=== PATIENT | male | born 1950 | race Caucasian/White ===

== ENCOUNTER 2021-10-23 | Emergency (ER) | payer MEDICARE, SELFPAY ==
--- NOTE | 2021-10-23 | ECG_ITS ---
Test Reason : HYPOGYLCEMIA Blood Pressure : / mmHG Vent. Rate : 063 BPM Atrial Rate : 063 BPM P-R Int : 208 ms QRS Dur : 102 ms QT Int : 422 ms P-R-T Axes : 074 056 078 degrees QTc Int : 431 ms Normal sinus rhythm Normal ECG When compared with ECG of 14-SEP-2018 20:11, Premature ventricular complexes are no longer Present Referred By: Generic ED Physician Electronically Signed By:Kirby Candelaria
[2021-10-23 00:06] VITALS: BP 126/53; BP 130/70; PULSE 68; RESP 16; TEMP 36.5; O2SAT 93; BMI 32.4
[2021-10-23 00:12] LABS: Glucose, Whole Blood 75 mg/dL (60-115)
[2021-10-23 00:22] LABS: MANUAL DIFF FLAG NO
[2021-10-23 00:23] LABS: Basophils Absolute Auto 0.1 X10*3/uL (0.0-0.2); Basophils Percent Auto 0.8 % (0-2); Eosinophils Absolute Auto 0.4 X10*3/uL (0.0-0.4); Hematocrit 32.9 % (42.0-52.0); Hemoglobin 10.5 g/dl (14.0-18.0); Imm Gran Abs Auto 0.03 X10*3/uL (0.00-0.03); Imm Gran Pct Auto 0.3 % (0.0-0.4); Lymphocytes Absolute Auto 1.8 X10*3/uL (1.2-4.9); Lymphocytes Percent Auto 18.5 % (20-40); Mean Corpuscular HGB Conc 31.9 g/dl (31.0-36.0); Mean Corpuscular Hemoglobin 29.1 pg (27.0-33.0); Mean Corpuscular Volume 91.1 fL (80.0-98.0); Mean Platelet Volume 9.1 fL (9.4-12.4); Monocytes Absolute Auto 0.8 X10*3/uL (0.1-1.2); Monocytes Percent Auto 8.1 % (2-11); Neutrophils Absolute Auto 6.5 x10*3/uL (2.0-8.3); Neutrophils Percent Auto 68.3 % (45-73); Platelet Count 202 X10*3/uL (160-400); Red Blood Count 3.61 X10*6/uL (4.60-5.80); Red Cell Distribution Width 12.4 % (11.0-16.0); White Blood Count 9.5 X10*3/uL (4.8-10.8)
[2021-10-23 00:50] LABS: Troponin-I High Sensitivity 9.2 ng/L (<3.5-35.0)
[2021-10-23 00:52] LABS: Glucose, Whole Blood 89 mg/dL (60-115)
[2021-10-23 01:02] LABS: Alanine Aminotransferase 17 U/L (0-40); Albumin Level 3.9 g/dL (3.5-5.0); Alkaline Phosphatase 74 U/L (39-117); Anion Gap 13 (12-20); Aspartate Amino Transferase 22 U/L (5-37); Bilirubin Total 0.3 mg/dL (0.0-1.0); Blood Urea Nitrogen 28 mg/dL (9-16); Carbon Dioxide 28 mmol/L (22-29); Chloride 104 mmol/L (96-108); Creatinine Clr Calc Pharmacy 51.9; Estimated Glomerular Filt Rate 48; Glucose Random 28 mg/dL (60-115); Potassium 4.3 mmol/L (3.3-5.1); Sodium 141 mmol/L (135-145); Total Protein 7.1 g/dL (6.5-8.0)
[2021-10-23 01:14] LABS: Glucose, Whole Blood 250 mg/dL (60-115)
[2021-10-23 01:14] LABS: Glucose, Whole Blood 37 mg/dL (60-115)
--- NOTE | 2021-10-23 01:37 | ED.AMS ---
HPI - Altered Mental Status General Chief Complaint: Altered Mental Status Stated Complaint: HYPERGLYCEMIA Time Seen by Provider: 10/23/21 00:57 Source: EMS Mode of arrival: EMS Limitations: no limitations History of Present Illness HPI narrative: Patient was seen in the room for altered mental status. At home, patient was sitting on his couch, seems that he was running in his arms, not in a tonic clonic manner. Patient's checked his blood glucose, it was read as low. When EMS arrived, he was given oral glucose, his blood glucose increased to 430. On arrival to the emergency room, it had already dropped to 75. Shortly after, his blood glucose was checked again, glucose dropped to the low 30s. Patient is very somnolent, cannot give any significant history. Related Data Previous Rx's Medication Instructions Recorded glucagon 1 mg solution for 1 mg IM ONCE PRN #1 ea 10/23/21 injection (Glucagon Emergency Kit) Allergies Allergy/AdvReac Type Severity Reaction Status Date / Time No Known Allergies Allergy Verified 10/23/21 00:10 Review of Systems Review of Systems: Yes Unobtainable due to mental condition [facility] Past Medical History Medical History Diabetes Social History Social History Advance Directives: No Advance Directives Information Provided: No Physical Exam ED Vital Signs: Vital Signs - 24 hr 10/23/21 00:06 10/23/21 01:38 Temperature 97.7 F Pulse Rate 68 72 Respiratory Rate 16 16 Blood Pressure 126/53 L 164/88 H Pulse Oximetry 93 98 BMI result Body Mass Index 32.4 Const Other: Appearance: Somnolent, easily arousable but falls right back asleep Eyes: Pupils equal, round and reactive to light. ENT: Pharynx normal. Neck: Normal inspection. Neck supple. No lymph nodes noted. No crepitus CVS: Normal heart rate and rhythm. Pulses normal. Normal S1 and S2 Respiratory: No respiratory distress. Breath sounds normal. No Wheezing. No rales Abdomen: Soft and nontender. No rigidity. No distention. Skin: Skin warm and dry. Patient has a 4 cm laceration in the calf of the left leg Extremities: No lower extremity edema. No Lacerations. No Rash Neuro: Very somnolent, can follow some basic commands, pulse rate asleep Psych: calm, somnolent Course Course Course Narrative: Patient was given 1 dose of D50, blood glucose is in the 130s. Patient more awake and alert. Patient tolerated well the stitches, 7 were applied. Patient has had multiple blood sugar checks, patient has been consistently in the 150s. Asymptomatic. Patient instructed to decrease his Lantus to 35 units at bedtime. Patient given a prescription for a glucagon emergency kit MDM - Altered Mental Status Lab Data Result diagrams: 10/23/21 00:18 10/23/21 00:18 Labs: Lab Results 10/23/21 10/23/21 10/23/21 Range/Units 00:07 00:18 00:18 WBC 9.5 (4.8-10.8) X10*3/uL RBC 3.61 L (4.60-5.80) X10*6/uL Hgb 10.5 L (14.0-18.0) g/dl Hct 32.9 L (42.0-52.0) % MCV 91.1 (80.0-98.0) fL MCH 29.1 (27.0-33.0) pg MCHC 31.9 (31.0-36.0) g/dl RDW 12.4 (11.0-16.0) % Plt Count 202 (160-400) X10*3/uL MPV 9.1 L (9.4-12.4) fL Immature Gran % (Auto) 0.3 (0.0-0.4) % Neut % (Auto) 68.3 (45-73) % Lymph % (Auto) 18.5 L (20-40) % [place] % (Auto) 8.1 (2-11) % Eos % (Auto) 4.0 (0-4) % Baso % (Auto) 0.8 (0-2) % Lymph # (Auto) 1.8 (1.2-4.9) X10*3/uL [place] # (Auto) 0.8 (0.1-1.2) X10*3/uL Eos # (Auto) 0.4 (0.0-0.4) X10*3/uL Baso # (Auto) 0.1 (0.0-0.2) X10*3/uL Abs Immat Gran (auto) 0.03 (0.00-0.03) X10*3/uL Absolute Neuts (auto) 6.5 (2.0-8.3) x10*3/uL Absolute Nucleated RBC 0.000 (0.0-0.012) X10*3/uL Nucleated RBC % (auto) 0.0 (0.0-0.2) /100WBC Sodium 141 (135-145) mmol/L Potassium 4.3 (3.3-5.1) mmol/L Chloride 104 (96-108) mmol/L Carbon Dioxide 28 (22-29) mmol/L Anion Gap 13 (12-20) BUN 28 H (9-16) mg/dL Creatinine 1.45 H (0.5-1.4) mg/dL Estim Creat Clear Calc 51.9 Estimated GFR 48 POC Glucose 75 (60-115) mg/dL Random Glucose 28 L* (60-115) mg/dL Calcium 9.0 (8.4-10.2) mg/dL Total Bilirubin 0.3 (0.0-1.0) mg/dL AST 22 (5-37) U/L ALT 17 (0-40) U/L Alkaline Phosphatase 74 (39-117) U/L Troponin I High Sens (<3.5-35.0) ng/L Total Protein 7.1 (6.5-8.0) g/dL Albumin 3.9 (3.5-5.0) g/dL 10/23/21 10/23/21 10/23/21 Range/Units 00:18 00:46 01:03 WBC (4.8-10.8) X10*3/uL RBC (4.60-5.80) X10*6/uL Hgb (14.0-18.0) g/dl Hct (42.0-52.0) % MCV (80.0-98.0) fL MCH (27.0-33.0) pg MCHC (31.0-36.0) g/dl RDW (11.0-16.0) % Plt Count (160-400) X10*3/uL MPV (9.4-12.4) fL Immature Gran % (Auto) (0.0-0.4) % Neut % (Auto) (45-73) % Lymph % (Auto) (20-40) % [place] % (Auto) (2-11) % Eos % (Auto) (0-4) % Baso % (Auto) (0-2) % Lymph # (Auto) (1.2-4.9) X10*3/uL [place] # (Auto) (0.1-1.2) X10*3/uL Eos # (Auto) (0.0-0.4) X10*3/uL Baso # (Auto) (0.0-0.2) X10*3/uL Abs Immat Gran (auto) (0.00-0.03) X10*3/uL Absolute Neuts (auto) (2.0-8.3) x10*3/uL Absolute Nucleated RBC (0.0-0.012) X10*3/uL Nucleated RBC % (auto) (0.0-0.2) /100WBC Sodium (135-145) mmol/L Potassium (3.3-5.1) mmol/L Chloride (96-108) mmol/L Carbon Dioxide (22-29) mmol/L Anion Gap (12-20) BUN (9-16) mg/dL Creatinine (0.5-1.4) mg/dL Estim Creat Clear Calc Estimated GFR POC Glucose 89 37 L* (60-115) mg/dL Random Glucose (60-115) mg/dL Calcium (8.4-10.2) mg/dL Total Bilirubin (0.0-1.0) mg/dL AST (5-37) U/L ALT (0-40) U/L Alkaline Phosphatase (39-117) U/L Troponin I High Sens 9.2 (<3.5-35.0) ng/L Total Protein (6.5-8.0) g/dL Albumin (3.5-5.0) g/dL 10/23/21 10/23/21 10/23/21 Range/Units 01:11 01:25 01:37 WBC (4.8-10.8) X10*3/uL RBC (4.60-5.80) X10*6/uL Hgb (14.0-18.0) g/dl Hct (42.0-52.0) % MCV (80.0-98.0) fL MCH (27.0-33.0) pg MCHC (31.0-36.0) g/dl RDW (11.0-16.0) % Plt Count (160-400) X10*3/uL MPV (9.4-12.4) fL Immature Gran % (Auto) (0.0-0.4) % Neut % (Auto) (45-73) % Lymph % (Auto) (20-40) % [place] % (Auto) (2-11) % Eos % (Auto) (0-4) % Baso % (Auto) (0-2) % Lymph # (Auto) (1.2-4.9) X10*3/uL [place] # (Auto) (0.1-1.2) X10*3/uL Eos # (Auto) (0.0-0.4) X10*3/uL Baso # (Auto) (0.0-0.2) X10*3/uL Abs Immat Gran (auto) (0.00-0.03) X10*3/uL Absolute Neuts (auto) (2.0-8.3) x10*3/uL Absolute Nucleated RBC (0.0-0.012) X10*3/uL Nucleated RBC % (auto) (0.0-0.2) /100WBC Sodium (135-145) mmol/L Potassium (3.3-5.1) mmol/L Chloride (96-108) mmol/L Carbon Dioxide (22-29) mmol/L Anion Gap (12-20) BUN (9-16) mg/dL Creatinine (0.5-1.4) mg/dL Estim Creat Clear Calc Estimated GFR POC Glucose 250 H 159 H 154 H (60-115) mg/dL Random Glucose (60-115) mg/dL Calcium (8.4-10.2) mg/dL Total Bilirubin (0.0-1.0) mg/dL AST (5-37) U/L ALT (0-40) U/L Alkaline Phosphatase (39-117) U/L Troponin I High Sens (<3.5-35.0) ng/L Total Protein (6.5-8.0) g/dL Albumin (3.5-5.0) g/dL Procedures Laceration Laceration 1: Site: lower extremity Side (If applicable): left Size (cm): 4 Description: linear, flap and irregular Depth: simple, single layer Local Anesthetic: lidocaine 1% and with epi Amount of anesthesia used (mL): 10 Pre-repair: wound explored Skin layer closed with: nylon Size (cm): 4-0 Number of sutures: 7 Technique: simple, interrupted Discharge Plan Discharge Clinical Impression: Hypoglycemia, Laceration of skin of left lower leg Patient Disposition: Home, Self-Care Instructions: Laceration (ED), Hypoglycemia in a Person with Diabetes (ED) Additional Instructions: Please decrease your Lantus units to 35 units until you see your primary care physician. Your sutures need to be removed in 7-10 days. If you have any signs of infection such as redness, pus drainage, fever or chills, please return to the emergency room. Please follow-up with your primary care physician tomorrow. If you have any worsening or new symptoms, please return to the emergency room or call 911 Prescriptions: New Glucagon Emergency Kit (human) 1 mg recon soln 1 mg IM ONCE PRN (Reason: hypoglycemia) Qty: 1 0RF
[2021-10-23 01:38] VITALS: BP 164/88; PULSE 72; RESP 16; O2SAT 98
[2021-10-23 01:42] LABS: Glucose, Whole Blood 154 mg/dL (60-115)
[2021-10-23 01:42] LABS: Glucose, Whole Blood 159 mg/dL (60-115)
[2021-10-23] MEDS: Dextrose 5 % and 0.45 % NaCl 1,000 ML 125 ML IVCONT (02:46)
[2021-10-23 04:00] VITALS: BP 164/88; PULSE 72; RESP 16; TEMP 36.5
[2021-10-23 09:34] LABS: Glucose, Whole Blood 99 mg/dL (60-115)
[2021-10-23 09:34] LABS: Glucose, Whole Blood 108 mg/dL (60-115)
== END 2021-10-23 06:05 | disposition home or self-care (01) ==
PROVIDERS: Emergency Provider Emergency Medicine; PCP Internal Medicine
DX: E11.649 Type 2 diabetes mellitus with hypoglycemia without coma (principal); S81.812A Laceration without foreign body, left lower leg, initial encounter; W45.8XXA Other foreign body or object entering through skin, initial encounter; R40.0 Somnolence; Y93.9 Activity, unspecified; Y92.9 Unspecified place or not applicable; Y99.9 Unspecified external cause status
CPT/HCPCS: 36415; 80053; 82947; 84484; 85025; 93005; 96374; 99284

== ENCOUNTER 2021-12-06 06:26 | Observation (INO) | payer MEDICARE, SELFPAY ==
[2021-12-06] VITALS (8 sets, daily range): BP systolic 120–170; BP diastolic 53–80; PULSE 75–83; RESP 12–22; TEMP 36.8–37.2; O2SAT 90–97; BMI 29.8
--- NOTE | ~2021-12-06 | XR_ITS ---
EXAMINATION: XR CHEST XR KNEE-RIGHT CLINICAL INFORMATION: Syncope. History of fall, right knee pain. COMPARISON: Chest radiograph done on 09/14/2018. TECHNIQUE: Single frontal view of the chest and 2 views of the right knee were obtained. FINDINGS: Chest: Both lung nunez are symmetrically expanded and appear clear. The cardiac mediastinal silhouette is within normal limit. Prominent epicardial pad of fat is noted. No evidence of any pleural effusion or pneumothorax. The visualized upper abdomen is unremarkable. The heart size is within normal limits. No significant change. Right knee: Mild diffuse osteopenia. Bony alignments are intact. The cortices are intact. No evidence of any joint effusion present. Extensive atherosclerotic femoral popliteal arterial calcific disease is present. Soft tissues are otherwise unremarkable. XR/XR knee RT 2V IMPRESSION: 1. No radiographic evidence of acute cardiopulmonary disease. 2. No radiographic evidence of any displaced fracture, subluxation or dislocation or joint effusion is seen. 3. Incidental note is made of extensive calcific atherosclerotic disease of the femoral popliteal arteries.
--- NOTE | ~2021-12-06 | XR_ITS ---
EXAMINATION: XR CHEST XR KNEE-RIGHT CLINICAL INFORMATION: Syncope. History of fall, right knee pain. COMPARISON: Chest radiograph done on 09/14/2018. TECHNIQUE: Single frontal view of the chest and 2 views of the right knee were obtained. FINDINGS: Chest: Both lung nunez are symmetrically expanded and appear clear. The cardiac mediastinal silhouette is within normal limit. Prominent epicardial pad of fat is noted. No evidence of any pleural effusion or pneumothorax. The visualized upper abdomen is unremarkable. The heart size is within normal limits. No significant change. Right knee: Mild diffuse osteopenia. Bony alignments are intact. The cortices are intact. No evidence of any joint effusion present. Extensive atherosclerotic femoral popliteal arterial calcific disease is present. Soft tissues are otherwise unremarkable. XR/XR chest 1V IMPRESSION: 1. No radiographic evidence of acute cardiopulmonary disease. 2. No radiographic evidence of any displaced fracture, subluxation or dislocation or joint effusion is seen. 3. Incidental note is made of extensive calcific atherosclerotic disease of the femoral popliteal arteries.
--- NOTE | ~2021-12-06 | CT_ITS ---
EXAMINATION: CT HEAD WITHOUT CONTRAST CLINICAL INFORMATION: Status post fall. Right knee pain. COMPARISON: CT of the head done on 09/14/2018. TECHNIQUE: Contiguous axial imaging was performed from the skull base to vertex without intravenous administration of contrast. This CT examination was performed using dose optimization techniques as appropriate, variously including the following: *Automated exposure control *Adjustment of mA and/or kV according to patient size (this includes techniques or standardized protocols for targeted exams where dose is matched to indication/reason for exam; i.e. extremities or head) *Use of iterative reconstruction technique DLP: 827.8 mGy-cm FINDINGS: There is no evidence of acute intracranial hemorrhage or territorial infarction. No abnormal mass effect or midline shift is seen. Leyva to white matter differentiation is well preserved. No extra-axial fluid collections are identified. The ventricles are normal in size. There is no abnormal attenuation within the brain parenchyma. The osseous structures and soft tissues are normal. The mastoid air cells and visualized portions of the paranasal sinuses are well aerated. CT/CT head/brain wo con IMPRESSION: No acute intracranial pathology. No significant change since prior study dated 09/14/2018.
[2021-12-06 06:42] LABS: Glucose, Whole Blood 110 mg/dL (60-115)
--- NOTE | 2021-12-06 07:40 | ECG_ITS ---
Test Reason : syncope Blood Pressure : / mmHG Vent. Rate : 074 BPM Atrial Rate : 074 BPM P-R Int : 208 ms QRS Dur : 102 ms QT Int : 382 ms P-R-T Axes : 071 054 073 degrees QTc Int : 424 ms Normal sinus rhythm Normal ECG When compared with ECG of 23-OCT-2021 00:21, No significant change was found Referred By: Selvin Olivier Electronically Signed By:CATY DUKE MD
--- NOTE | 2021-12-06 07:46 | ED_ITS ---
HPI - General Adult General Chief complaint: Fall Stated complaint: Hypoglycemia Time Seen by Provider: 12/06/21 07:40 Source: patient, family (Spouse) and EMS Mode of arrival: EMS Limitations: no limitations History of Present Illness HPI narrative: 71-year-old male came in for evaluation of syncope. This is a 71-year-old male type 1 diabetes controlled with Lantus insulin 40 units daily at the p.m. time, patient had syncopal episode was sleeping on the recliner down stairs then found on the floor with LOC, patient has no memory of the event, EMS found him on the floor with LOC, POC was checked by EMS and was 38 patient started to regain consciousness gradually after 25 G of D50 was administrated by EMS. Patient had another episode of syncope yesterday but patient refused to come to the hospital for evaluation. Patient's only complaint is right knee pain, no headache, no head pain, no neck pain, no fever, no chills. Patient takes Plavix and aspirin Related Data Home Medications Medication Instructions Recorded Confirmed albuterol sulfate 90 mcg/actuation 2 puff INHALATION Q6H PRN 12/06/21 12/06/21 aerosol inhaler amitriptyline 25 mg tablet 3 tab PO DAILY 12/06/21 12/06/21 amlodipine 10 mg tablet 1 tab PO DAILY 12/06/21 12/06/21 aspirin 81 mg tablet,delayed 1 tab PO DAILY 12/06/21 12/06/21 release clopidogrel 75 mg tablet 1 tab PO DAILY 12/06/21 12/06/21 fluticasone fur. 100 mcg-umeclid 1 puff PO DAILY 12/06/21 12/06/21 62.5 mcg-vilant 25 mcg inhalat.powder (Trelegy Ellipta) gabapentin 300 mg capsule cap PO 12/06/21 lisinopril 2.5 mg tablet 1 tab PO DAILY 12/06/21 12/06/21 oxycodone 20 mg tablet,crush 1 tab PO BID PRN 12/06/21 12/06/21 resistant,extended release 12 hr (OxyContin) oxycodone-acetaminophen 5 mg-325 1 tab PO Q12H PRN 12/06/21 12/06/21 mg tablet pravastatin 40 mg tablet 1 tab PO DAILY 12/06/21 12/06/21 tiotropium 2.5 mcg-olodaterol 2.5 2 puff INHALATION DAILY 12/06/21 12/06/21 mcg/actuation mist for inhalation (Stiolto Respimat) Previous Rx's Medication Instructions Recorded glucagon 1 mg solution for 1 mg IM ONCE PRN #1 ea 10/23/21 injection (Glucagon Emergency Kit) Allergies Allergy/AdvReac Type Severity Reaction Status Date / Time No Known Allergies Allergy Verified 12/06/21 06:41 Review of Systems Review of Systems: All other systems are reviewed and are negative Constitutional: Reports as per HPI and Reports no additional constitutional complaints Eyes: Reports as per HPI and Reports no additional eye complaints Reports system reviewed and no additional complaints, except as documented Cardiovascular: Reports as per HPI and Reports no additional cardiovascular co mplaints Respiratory: Reports as per HPI and Reports no additional respiratory complaints Gastrointestinal: Reports as per HPI and Reports no additional gastrointestinal complaints Genitourinary: Reports no additional female genitourinary complaints Musculoskeletal: Reports no additional musculoskeletal complaints Skin/Breast: Reports system reviewed and no additional complaints, except as docu Psychiatric: Reports no additional psychiatric complaints Endocrine: Reports no additional endocrine complaints Hematologic/Lymphatic: Reports no additional hematologic/lymphatic complaints Allergic/Immunologic: Reports no additional allergic/immunologic complaints Reports system reviewed and no additional complaints, except as documented and Reports Abnormal speech present [facility] Past Medical History Medical History Diabetes Social History Social History Alcohol intake: never Patient Tobacco Use Status: Current someday Tobacco user Use of substances other than those prescribed or required for medical reasons: No Advance Directives: No Advance Directives Information Provided: No Physical Exam ED Vital Signs: Vital Signs - 24 hr 12/06/21 06:33 12/06/21 06:44 12/06/21 11:20 Temperature 98.5 F Pulse Rate 76 75 77 Respiratory Rate 22 H 18 12 Blood Pressure 129/53 L 134/53 L 149/66 H Pulse Oximetry 90 L 94 94 BMI result Body Mass Index 29.8 Vital signs have been reviewed as appeared to be correct. Blood pressure normal. Heart rate normal. Respiration rate normal. Temperature normal. Oxygen saturation normal. Appearance: Alert. Oriented X3. No acute distress. Head: Normal external exam. Normocephalic. Atraumatic. No Alex signs noted. No raccoon eyes noted Eyes: PERRLA. EOMI. Conjunctiva and sclera normal. Eyelids normal. ENT: TM's Normal. Pharynx normal. Uvula midline. Moist mucous membranes. No trismus noted. No drooling noted. No muffled voice noted. Neck: Normal inspection. Neck supple. FROM. No adenopathy. Thyroid Normal. No meningeal signs. No neck mass noted. CVS: Normal heart rate and rhythm. Heart sound normal. No murmurs noted. Pulses normal throughout. Respiratory: No respiratory distress. Painless inspiration. Breath sounds normal. No wheezes/rales/rhonchi noted. Chest nontender. No accessory muscle usage noted or decreased air movement noted. Abdomen: Soft and nontender. Bowel sounds normal in all 4 quadrants. No distention noted. No organomegaly noted. No visible injury noted. Back: No CVA tenderness. Full range of motion noted. Skin: Skin warm and dry. Normal skin color. Normal skin turgor. No rashes/lesions/lacerations noted. Extremities: No lower extremity edema. Extremities exhibit normal range of motion. Extremities nontender. Neuro: Oriented X 3. Cranial nerve exam: II-XII are grossly intact No motor deficit. No sensory deficit. Reflexes normal. Course Course Course Narrative: Assessment and plan. 71-year-old male history diabetes controlled with insulin, patient take Lantus 40 units once a day, had a 3 isolated episodes of hypoglycemia with syncope, will admit the patient for further blood sugar monitoring. Medical Decision Making Lab Data Lab results reviewed: Yes I reviewed the patient's lab results. Result diagrams: 12/06/21 08:17 12/06/21 08:17 Labs: Lab Results 12/06/21 12/06/21 12/06/21 Range/Units 06:34 08:17 08:17 WBC 12.5 H (4.8-10.8) X10*3/uL RBC 3.67 L (4.60-5.80) X10*6/uL Hgb 10.7 L (14.0-18.0) g/dl Hct 33.8 L (42.0-52.0) % MCV 92.1 (80.0-98.0) fL MCH 29.2 (27.0-33.0) pg MCHC 31.7 (31.0-36.0) g/dl RDW 12.8 (11.0-16.0) % Plt Count 225 (160-400) X10*3/uL MPV 9.3 L (9.4-12.4) fL Immature Gran % (Auto) 0.6 H (0.0-0.4) % Neut % (Auto) 77.0 H (45-73) % Lymph % (Auto) 11.2 L (20-40) % [place] % (Auto) 7.8 (2-11) % Eos % (Auto) 2.7 (0-4) % Baso % (Auto) 0.7 (0-2) % Lymph # (Auto) 1.4 (1.2-4.9) X10*3/uL [place] # (Auto) 1.0 (0.1-1.2) X10*3/uL Eos # (Auto) 0.3 (0.0-0.4) X10*3/uL Baso # (Auto) 0.1 (0.0-0.2) X10*3/uL Abs Immat Gran (auto) 0.08 H (0.00-0.03) X10*3/uL Absolute Neuts (auto) 9.6 H (2.0-8.3) x10*3/uL Absolute Nucleated RBC 0.000 (0.0-0.012) X10*3/uL Nucleated RBC % (auto) 0.0 (0.0-0.2) /100WBC Sodium 138 (135-145) mmol/L Potassium 5.2 H D (3.3-5.1) mmol/L Chloride 104 (96-108) mmol/L Carbon Dioxide 26 (22-29) mmol/L Anion Gap 13 (12-20) BUN 22 H (9-16) mg/dL Creatinine 1.23 (0.5-1.4) mg/dL Estim Creat Clear Calc 66.3 Estimated GFR 58 POC Glucose 110 (60-115) mg/dL Random Glucose 90 D (60-115) mg/dL Calcium 9.3 (8.4-10.2) mg/dL Total Bilirubin 0.3 (0.0-1.0) mg/dL Direct Bilirubin 0.2 (0.0-0.5) mg/dL AST 33 D (5-37) U/L ALT 18 (0-40) U/L Alkaline Phosphatase 71 (39-117) U/L Troponin I High Sens (<3.5-35.0) ng/L Total Protein 7.0 (6.5-8.0) g/dL Albumin 3.9 (3.5-5.0) g/dL Lipase 5 L (8-78) U/L Urine Color Urine Appearance Urine pH (5.0-8.0) Ur Specific [place] (1.005-1.025) Urine Protein (NEG-TRACE) MG/DL Urine Glucose (UA) (NEG) MG/DL Urine Ketones (NEG) MG/DL Urine Blood (NEG) Urine Nitrite (NEG) Ur Leukocyte Esterase (NEG) 12/06/21 12/06/21 12/06/21 Range/Units 08:17 08:17 12:55 WBC (4.8-10.8) X10*3/uL RBC (4.60-5.80) X10*6/uL Hgb (14.0-18.0) g/dl Hct (42.0-52.0) % MCV (80.0-98.0) fL MCH (27.0-33.0) pg MCHC (31.0-36.0) g/dl RDW (11.0-16.0) % Plt Count (160-400) X10*3/uL MPV (9.4-12.4) fL Immature Gran % (Auto) (0.0-0.4) % Neut % (Auto) (45-73) % Lymph % (Auto) (20-40) % [place] % (Auto) (2-11) % Eos % (Auto) (0-4) % Baso % (Auto) (0-2) % Lymph # (Auto) (1.2-4.9) X10*3/uL [place] # (Auto) (0.1-1.2) X10*3/uL Eos # (Auto) (0.0-0.4) X10*3/uL Baso # (Auto) (0.0-0.2) X10*3/uL Abs Immat Gran (auto) (0.00-0.03) X10*3/uL Absolute Neuts (auto) (2.0-8.3) x10*3/uL Absolute Nucleated RBC (0.0-0.012) X10*3/uL Nucleated RBC % (auto) (0.0-0.2) /100WBC Sodium (135-145) mmol/L Potassium (3.3-5.1) mmol/L Chloride (96-108) mmol/L Carbon Dioxide (22-29) mmol/L Anion Gap (12-20) BUN (9-16) mg/dL Creatinine (0.5-1.4) mg/dL Estim Creat Clear Calc Estimated GFR POC Glucose 55 L* (60-115) mg/dL Random Glucose (60-115) mg/dL Calcium (8.4-10.2) mg/dL Total Bilirubin (0.0-1.0) mg/dL Direct Bilirubin (0.0-0.5) mg/dL AST (5-37) U/L ALT (0-40) U/L Alkaline Phosphatase (39-117) U/L Troponin I High Sens 15.8 D (<3.5-35.0) ng/L Total Protein (6.5-8.0) g/dL Albumin (3.5-5.0) g/dL Lipase (8-78) U/L Urine Color YELLOW Urine Appearance CLOUDY Urine pH 6.0 (5.0-8.0) Ur Specific [place] 1.020 (1.005-1.025) Urine Protein NEG (NEG-TRACE) MG/DL Urine Glucose (UA) 100 H (NEG) MG/DL Urine Ketones NEG (NEG) MG/DL Urine Blood NEG (NEG) Urine Nitrite NEG (NEG) Ur Leukocyte Esterase NEG (NEG) Imaging Data Head CT: Attestation: I personally reviewed and interpreted this imaging study as follows: Radiologist's impression: No acute intracranial pathology. No significant change since the prior study. Right knee x-ray: Attestation: I personally reviewed and interpreted this imaging study as follows: Radiologist's impression: 2. No radiographic evidence of any displaced fracture, subluxation or dislocation or joint effusion is seen. 3. 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 Chest x-ray: Attestation: I personally reviewed and interpreted this imaging study as follows: Radiologist's impression: No acute radiographic evidence of acute cardiopulmonary disease. Discharge Plan Discharge Clinical Impression: Syncope, Hypoglycemia Patient Disposition: Admitted As Inpatient Prescriptions: No Action Glucagon Emergency Kit (human) 1 mg recon soln 1 mg IM ONCE PRN (Reason: hypoglycemia) Qty: 1 0RF pravastatin 40 mg tablet 1 tab PO DAILY 0RF clopidogrel 75 mg tablet 1 tab PO DAILY 0RF aspirin 81 mg tablet,delayed release (DR/EC) 1 tab PO DAILY 0RF oxycodone-acetaminophen 5-325 mg tablet 1 tab PO Q12H PRN (Reason: pain) 0RF amitriptyline 25 mg tablet 3 tab PO DAILY 0RF amlodipine 10 mg tablet 1 tab PO DAILY 0RF gabapentin 300 mg capsule PO 0RF albuterol sulfate 90 mcg/actuation HFA aerosol inhaler 2 puff inhalation Q6H PRN (Reason: wheezing) 0RF lisinopril 2.5 mg tablet 1 tab PO DAILY 0RF oxycodone [OxyContin] 20 mg tablet,oral only,ext.rel.12 hr 1 tab PO BID PRN (Reason: pain) 0RF Stiolto Respimat 2.5-2.5 mcg/actuation mist 2 puff inhalation DAILY 0RF Trelegy Ellipta 100-62.5-25 mcg blister with device 1 puff PO DAILY 0RF
[2021-12-06 08:23] LABS: MANUAL DIFF FLAG NO
[2021-12-06 08:27] LABS: Appearance Urine CLOUDY; Color Urine YELLOW; Glucose Urine UA 100 MG/DL (NEG); Leukocyte Esterase Urine NEG (NEG); Nitrite Urine NEG (NEG); Urine Blood NEG (NEG); Urine Ketones NEG (NEG); Urine Protein NEG (NEG-TRACE)
[2021-12-06 08:29] LABS: Basophils Absolute Auto 0.1 X10*3/uL (0.0-0.2); Basophils Percent Auto 0.7 % (0-2); Eosinophils Absolute Auto 0.3 X10*3/uL (0.0-0.4); Eosinophils Percent Auto 2.7 % (0-4); Hematocrit 33.8 % (42.0-52.0); Hemoglobin 10.7 g/dl (14.0-18.0); Imm Gran Abs Auto 0.08 X10*3/uL (0.00-0.03); Imm Gran Pct Auto 0.6 % (0.0-0.4); Lymphocytes Absolute Auto 1.4 X10*3/uL (1.2-4.9); Lymphocytes Percent Auto 11.2 % (20-40); Mean Corpuscular HGB Conc 31.7 g/dl (31.0-36.0); Mean Corpuscular Hemoglobin 29.2 pg (27.0-33.0); Mean Corpuscular Volume 92.1 fL (80.0-98.0); Mean Platelet Volume 9.3 fL (9.4-12.4); Monocytes Percent Auto 7.8 % (2-11); Neutrophils Absolute Auto 9.6 x10*3/uL (2.0-8.3); Platelet Count 225 X10*3/uL (160-400); Red Blood Count 3.67 X10*6/uL (4.60-5.80); Red Cell Distribution Width 12.8 % (11.0-16.0); White Blood Count 12.5 X10*3/uL (4.8-10.8)
[2021-12-06 08:44] LABS: Alanine Aminotransferase 18 U/L (0-40); Albumin Level 3.9 g/dL (3.5-5.0); Alkaline Phosphatase 71 U/L (39-117); Anion Gap 13 (12-20); Aspartate Amino Transferase 33 U/L (5-37); Bilirubin Direct 0.2 mg/dL (0.0-0.5); Bilirubin Total 0.3 mg/dL (0.0-1.0); Blood Urea Nitrogen 22 mg/dL (9-16); Calcium 9.3 mg/dL (8.4-10.2); Carbon Dioxide 26 mmol/L (22-29); Chloride 104 mmol/L (96-108); Creatinine Clr Calc Pharmacy 66.3; Estimated Glomerular Filt Rate 58; Glucose Random 90 mg/dL (60-115); Lipase 5 U/L (8-78); Potassium 5.2 mmol/L (3.3-5.1); Sodium 138 mmol/L (135-145)
[2021-12-06 08:46] LABS: Troponin-I High Sensitivity 15.8 ng/L (<3.5-35.0)
[2021-12-06] MEDS: 0.9 % Sodium Chloride 1,000 ML 999 ML IV (09:15)
--- NOTE | 2021-12-06 10:00 | PC.NURSE ---
C collar removed by . CT was done
[2021-12-06 12:59] LABS: Glucose, Whole Blood 55 mg/dL (60-115)
--- NOTE | 2021-12-06 13:07 | PC.NURSE ---
POC was 55 and pt with some symptoms noted ( shaky and hungry) 2 cups of OJ given and notified MD. ordered a regular diet and called kitchen to obtain STAT.
--- NOTE | 2021-12-06 14:00 | PC.NURSE ---
pt ate 75% of lunch
--- NOTE | 2021-12-06 14:09 | PC.NURSE ---
pt seen by dr. cesar, pt aware of plan of care for admission to hosp.
--- NOTE | 2021-12-06 14:28 | PHA.MEDREC ---
Addendum entered by Melissa Chowdhury RPh 12/06/21 14:29: Patient reports using both Stiolto and Trelegy. Told patient they need to be [place] in to be continued. Original Note: Pharmacy Consult ? Medication Reconciliation Pharmacy has completed the medication reconciliation.Patient reports taking both Oxycontin and Percocet 2 tablet BID, however the prescriptions are for Oxycontin 1 tabl Q12H PRN and Percocet 1 tab BID PRN. I kept direction as prescripitons state. Melissa Chowdhury, PharmD
--- NOTE | 2021-12-06 14:54 | PM.IMHP ---
History of Present Illness Date of Service: 12/06/21 Chief Complaint: hypoglycemic syncope 71-year-old male type 1 diabetes controlled with Lantus insulin 40 units daily at the p.m. time, patient had syncopal episode was sleeping on the recliner down stairs then found on the floor with LOC, patient has no memory of the event, EMS found him on the floor with LOC, POC was checked by EMS and was 38 patient started to regain consciousness gradually after 25 G of D50 was administrated by EMS. Patient had another episode of syncope yesterday but patient refused to come to the hospital for evaluation. Patient's only complaint is right knee pain, no headache, no head pain, no neck pain, no fever, no chills. Patient takes Plavix and aspirin. ER course Workup essentially unremarkable. Given normal saline bolus. Breakfast and lunch given. Sugars have been labile but not requiring D50. Review of Systems Review of Systems: Denies chest pain Denies shortness of breath Denies nausea vomiting diarrhea Denies fever chills [facility] Medical History Diabetes Social History Alcohol intake: never Patient Tobacco Use Status: Current someday Tobacco user Use of substances other than those prescribed or required for medical reasons: No Advance Directives: No Advance Directives Information Provided: No Meds Allergies Allergy/AdvReac Type Severity Reaction Status Date / Time No Known Allergies Allergy Verified 12/06/21 06:41 Active Medications: Current Medications Acetaminophen (Acetaminophen 325 Mg Tablet) 650 mg PO Q6H PRN PRN Reason: Pain, Mild (Pain Scale 1-3) Albuterol Sulfate (Albuterol Sulfate 90 Mcg 8 Gm Inhaler) 2 puff INHALE Q6H PRN PRN Reason: wheezing Amitriptyline HCl (Amitriptyline Hcl 25 Mg Tablet) 75 mg PO BEDTIME [facility] Amlodipine Besylate (Amlodipine Besylate 10 Mg Tablet) 10 mg PO DAILY [facility]; Protocol Aspirin (Aspirin Enteric Coated 81 Mg Tablet.) 81 mg PO DAILY [facility] Clopidogrel Bisulfate (Clopidogrel Bisulfate 75 Mg Tablet) 75 mg PO DAILY [facility] Dextrose (Dextrose 50 % 25 Gm/50 Ml Syringe) 25 gm IVPUSH Q15M PRN; Protocol PRN Reason: per Hypoglycemia Standing Ord. Gabapentin (Gabapentin 300 Mg Capsule) 300 mg PO DAILY@1200 [facility] Gabapentin (Gabapentin 300 Mg Capsule) 600 mg PO BID [facility] Insulin Human Lispro (Insulin Lispro 100 Unit/Ml 3 Ml Vial) 5 unit SUBCUT ONCE ONE; Protocol Stop: 12/06/21 14:53 Lisinopril (Lisinopril 2.5 Mg Tablet) 2.5 mg PO DAILY [facility]; Protocol Melatonin (Melatonin 3 Mg Tablet) 6 mg PO BEDTIME PRN PRN Reason: Insomnia Non-Formulary Medication (Chlorthalidone) 1 tab PO DAILY [facility] Non-Formulary Medication (Tfpmdzysygz-Xafepnnoe-Elxvipcc [Trelegy Ellipta]) 1 puff PO DAILY [facility] Non-Formulary Medication (Oxycodone-Acetaminophen) 1 tab PO Q12H PRN PRN Reason: pain Non-Formulary Medication (Tiotropium-Olodaterol [Stiolto Respimat]) 2 puff INHALE DAILY [facility] Pravastatin Sodium (Pravastatin Sodium 40 Mg Tablet) 40 mg PO BEDTIME [facility] Sodium Chloride (0.9 % Sodium Chloride Flush 3 Ml Syringe) [facility] Medications Medication Instructions Recorded Confirmed Last Taken Type albuterol sulfate 90 mcg/actuation 2 puff INHALATION Q6H PRN 12/06/21 12/06/21 Unknown History aerosol inhaler amitriptyline 25 mg tablet 3 tab PO BEDTIME 12/06/21 12/06/21 Unknown History amlodipine 10 mg tablet 1 tab PO DAILY 12/06/21 12/06/21 Unknown History aspirin 81 mg tablet,delayed 1 tab PO DAILY 12/06/21 12/06/21 12/05/21 09:00 History release chlorthalidone 25 mg tablet 1 tab PO DAILY 12/06/21 12/06/21 Unknown History clopidogrel 75 mg tablet 1 tab PO DAILY 12/06/21 12/06/21 12/05/21 09:00 History fluticasone fur. 100 mcg-umeclid 1 puff PO DAILY 12/06/21 12/06/21 Unknown History 62.5 mcg-vilant 25 mcg inhalat.powder (Trelegy Ellipta) gabapentin 300 mg capsule 300 mg PO DAILY@1200 12/06/21 12/06/21 Unknown History gabapentin 300 mg capsule 600 mg PO BID 12/06/21 12/06/21 Unknown History insulin glargine 100 unit/mL 40 unit SUBCUT BEDTIME 12/06/21 12/06/21 Unknown History subcutaneous solution (Lantus U-100 Insulin) lisinopril 2.5 mg tablet 1 tab PO DAILY 12/06/21 12/06/21 Unknown History oxycodone 20 mg tablet,crush 1 tab PO BID PRN 12/06/21 12/06/21 Unknown History resistant,extended release 12 hr (OxyContin) oxycodone-acetaminophen 5 mg-325 1 tab PO Q12H PRN 12/06/21 12/06/21 Unknown History mg tablet pravastatin 40 mg tablet 1 tab PO BEDTIME 12/06/21 12/06/21 Unknown History tiotropium 2.5 mcg-olodaterol 2.5 2 puff INHALATION DAILY 12/06/21 12/06/21 Unknown History mcg/actuation mist for inhalation (Stiolto Respimat) Physical Exam Vital Signs and Narrative: Vital Signs: Last Vital Signs Temp 98.5 F 12/06/21 06:33 Pulse 80 12/06/21 13:36 Resp 19 12/06/21 13:36 BP 154/67 H 12/06/21 13:36 Pulse Ox 96 12/06/21 13:36 BMI result Body Mass Index 29.8 Const: Other: Awake alert oriented x3 no acute distress HEENT: Other: Membranes moist Resp: Other: Diminished at bases with scattered expiratory wheezes Cardio: Other: No S4; positive S1-S2; no S3 murmurs rubs or gallops GI: Other: Soft nontender nondistended normoactive bowel sounds Neuro: Other: Cranial nerves 2-12 grossly intact as tested. Motor is 5/5 all extremities sensation intact Extrem: Other: No edema bilaterally Results Labs CBC and Chem 7: 12/06/21 08:17 12/06/21 08:17 Labs: Laboratory Results - last 24 hr 12/06/21 12/06/21 12/06/21 06:34 08:17 08:17 MCV 92.1 MCH 29.2 MCHC 31.7 RDW 12.8 Plt Count 225 MPV 9.3 L Immature Gran % (Auto) 0.6 H Neut % (Auto) 77.0 H Lymph % (Auto) 11.2 L [place] % (Auto) 7.8 Eos % (Auto) 2.7 Baso % (Auto) 0.7 Lymph # (Auto) 1.4 [place] # (Auto) 1.0 Eos # (Auto) 0.3 Baso # (Auto) 0.1 Abs Immat Gran (auto) 0.08 H Absolute Neuts (auto) 9.6 H Absolute Nucleated RBC 0.000 Nucleated RBC % (auto) 0.0 Anion Gap 13 Estim Creat Clear Calc 66.3 Estimated GFR 58 POC Glucose 110 Random Glucose 90 D Calcium 9.3 Total Bilirubin 0.3 Direct Bilirubin 0.2 AST 33 D ALT 18 Alkaline Phosphatase 71 Troponin I High Sens Total Protein 7.0 Albumin 3.9 Lipase 5 L Urine Color Urine Appearance Urine pH Ur Specific [place] Urine Protein Urine Glucose (UA) Urine Ketones Urine Blood Urine Nitrite Ur Leukocyte Esterase 12/06/21 12/06/21 12/06/21 08:17 08:17 12:55 MCV MCH MCHC RDW Plt Count MPV Immature Gran % (Auto) Neut % (Auto) Lymph % (Auto) [place] % (Auto) Eos % (Auto) Baso % (Auto) Lymph # (Auto) [place] # (Auto) Eos # (Auto) Baso # (Auto) Abs Immat Gran (auto) Absolute Neuts (auto) Absolute Nucleated RBC Nucleated RBC % (auto) Anion Gap Estim Creat Clear Calc Estimated GFR POC Glucose 55 L* Random Glucose Calcium Total Bilirubin Direct Bilirubin AST ALT Alkaline Phosphatase Troponin I High Sens 15.8 D Total Protein Albumin Lipase Urine Color YELLOW Urine Appearance CLOUDY Urine pH 6.0 Ur Specific [place] 1.020 Urine Protein NEG Urine Glucose (UA) 100 H Urine Ketones NEG Urine Blood NEG Urine Nitrite NEG Ur Leukocyte Esterase NEG Imaging Radiologist's Impressions: Impressions Chest X-Ray 12/06/21 08:51 IMPRESSION: 1. No radiographic evidence of acute cardiopulmonary disease. 2. No radiographic evidence of any displaced fracture, subluxation or dislocation or joint effusion is seen. 3. Incidental note is made of extensive calcific atherosclerotic disease of the femoral popliteal arteries. Knee X-Ray 12/06/21 08:51 IMPRESSION: 1. No radiographic evidence of acute cardiopulmonary disease. 2. No radiographic evidence of any displaced fracture, subluxation or dislocation or joint effusion is seen. 3. Incidental note is made of extensive calcific atherosclerotic disease of the femoral popliteal arteries. Head CT 12/06/21 09:25 IMPRESSION: No acute intracranial pathology. No significant change since prior study dated 09/14/2018. Assessment and Plan (1) Syncope: Status: Acute (2) Hypoglycemia: Status: Acute (3) COPD (chronic obstructive pulmonary disease): Status: Acute Plan 71-year-old male with known history of diabetes on Lantus only presents after multiple syncopal episodes related to hypoglycemia. Patient states he has been on Lantus 40 at bedtime for some time after failing orals. Over the last several days he notes himself to be out of sorts and passing out and falling. Ambulance went to house yesterday although he declined transport. Today after similar episode called EMS and he presented to the ER which sugars in the 30-40 range. He was fed given L saline and a sugars are slowly responding 1. Hypoglycemia -will hold Lantus and continue diet at this time -check sugars q.i.d. a.c. and HS with D50 p.r.n. hypoglycemia -will likely resolve overnight patient can be discharged home to follow-up with PCP 2. COPD -will continue outpatient inhalers -add DuoNeb treatments q.4 hours p.r.n. Lovenox Full Code Patient will require overnight stay to fully stabilize his blood sugar Quality Stroke Does the patient have a stroke diagnosis?: No VTE Prior VTE?: No VTE Risk Level:: Medical - moderate - high VTE Device Contraindication: Treatment Not Indicated VTE Drug Contraindication: N/A - Med Ordered
[2021-12-06 14:57] LABS: COVID-19 Test Negative (Negative)
--- NOTE | 2021-12-06 15:03 | PC.NURSE ---
rn to rn report given to ishaan josue aware of plan of care for transfer to overflow unit.
[2021-12-06 15:09] LABS: Glucose, Whole Blood 168 mg/dL (60-115)
[2021-12-06] MEDS: hydroCHLOROthiazide 25 MG TABLET PO (16:24)
[2021-12-06] MEDS: Albuterol/Iprat 2.5/0.5MG 3 ML AMPUL.NEB INHALE (16:35)
[2021-12-06 17:26] LABS: Glucose, Whole Blood 167 mg/dL (60-115)
[2021-12-06] MEDS: Albuterol Sulfate 90 MCG 8 GM INHALER 2 PUFF INHALE (20:03)
[2021-12-06 21:15] LABS: Glucose, Whole Blood 248 mg/dL (60-115)
[2021-12-06] MEDS: Insulin Lispro 100 UNIT/ML 3 ML VIAL SUBCUT (21:44)
[2021-12-06] MEDS: 0.9 % Sodium Chloride Flush 3 ML SYRINGE IVFLUSH (21:45)
[2021-12-06] MEDS: Amitriptyline HCl 25 MG TABLET 75 MG PO (21:46)
[2021-12-06] MEDS: Pravastatin Sodium 40 MG TABLET PO (21:46)
[2021-12-06] MEDS: Gabapentin 300 MG CAPSULE 600 MG PO (21:47)
[2021-12-06] MEDS: oxyCODONE HCl Immed Release 5 MG TABLET PO (21:54)
[2021-12-07] VITALS: BP 153/69; PULSE 73; RESP 17; TEMP 37; O2SAT 95
[2021-12-07] MEDS: 0.9 % Sodium Chloride Flush 3 ML SYRINGE IVFLUSH ×2 (01:00→08:28)
[2021-12-07 07:07] VITALS: BP 163/70; PULSE 76; RESP 18; TEMP 36.5; O2SAT 93
[2021-12-07 07:46] LABS: Glucose, Whole Blood 187 mg/dL (60-115)
[2021-12-07] MEDS: hydroCHLOROthiazide 25 MG TABLET PO (08:27)
[2021-12-07] MEDS: Gabapentin 300 MG CAPSULE 600 MG PO (08:27)
[2021-12-07] MEDS: amLODIPine Besylate 10 MG TABLET PO (08:27)
[2021-12-07] MEDS: Clopidogrel Bisulfate 75 MG TABLET PO (08:27)
[2021-12-07] MEDS: lisinopriL 2.5 MG TABLET PO (08:27)
[2021-12-07] MEDS: Aspirin Enteric Coated 81 MG TABLET.DR PO (08:27)
[2021-12-07] MEDS: Insulin Lispro 100 UNIT/ML 3 ML VIAL SUBCUT ×2 (08:27→12:36)
[2021-12-07] MEDS: Albuterol Sulfate 90 MCG 8 GM INHALER 2 PUFF INHALE (08:32)
[2021-12-07 08:34] VITALS: PULSE 64; RESP 16; O2SAT 95
[2021-12-07] MEDS: oxyCODONE HCl Immed Release 5 MG TABLET PO (09:58)
[2021-12-07 10:17] LABS: Estimated Average Glucose 143 mg/dL; Hemoglobin A1c % 6.6 %
[2021-12-07 10:55] LABS: Glucose, Whole Blood 206 mg/dL (60-115)
[2021-12-07 11:00] VITALS: BP 169/74; PULSE 72; RESP 19; TEMP 36.8; O2SAT 94
--- NOTE | 2021-12-07 11:32 | PM.DS ---
DS: Providers Provider Date of Service: 12/07/21 Date of admission: 12/06/21 14:50 Date of discharge: 12/07/21 Primary care physician: Alpa Kelly MD DS: Diagnosis Discharge Diagnosis (1) Syncope: Status: Acute (2) Hypoglycemia: Status: Acute (3) COPD (chronic obstructive pulmonary disease): Status: Acute DS: Summary Hospital Course Hospital Course: from admission H+P by hospitalist Wolfgang Olson DO, 12/06/21: 71-year-old male type 1 diabetes controlled with Lantus insulin 40 units daily at the p.m. time, patient had syncopal episode was sleeping on the recliner down stairs then found on the floor with LOC, patient has no memory of the event, EMS found him on the floor with LOC, POC was checked by EMS and was 38 patient started to regain consciousness gradually after 25 G of D50 was administrated by EMS. Patient had another episode of syncope yesterday but patient refused to come to the hospital for evaluation. Patient's only complaint is right knee pain, no headache, no head pain, no neck pain, no fever, no chills. Patient takes Plavix and aspirin. ER course Workup essentially unremarkable.? Given normal saline bolus.? Breakfast and lunch given.? Sugars have been labile but not requiring D50. Correction to above: patient is a type 2 diabetic who was placed on long-acting insulin several years ago. He was admitted to the medical/surgical floor. Lantus held and correction-dose lispro given. BG 167-248. Hypoglycemia did not recur. He was discharged home with instructions to halve the dose of Lantus to 20 units with goal AM BG of 80-140; glucose gel was also prescribed in case of hypoglycemia, and he was instructed to stop Lantus entirely if hypoglycemia recurred. Instructed to follow up with his primary care doctor and to consider Endocrinology referral for continous glucometer. Time Spent with Patient Time attestation: Total time spent providing and/or coordinating discharge services: Discharge coordination time: Less than 30 minutes Quality: Safe Use of Opioids Does Pt have an Active Cancer Diagnosis on the Problem List?: No Quality: Stroke Does the patient have a stroke diagnosis?: No Physical Exam Vital Signs: Vital Signs: Last Vital Signs Temp 98.3 F 12/07/21 11:00 Pulse 72 12/07/21 11:00 Resp 19 12/07/21 11:00 BP 169/74 H 12/07/21 11:00 Pulse Ox 94 12/07/21 11:00 BMI result Body Mass Index 29.8 Gen: in no acute distress HEENT: sclera anicteric, moist mucus membranes Neck: supple Lungs: clear to auscultation bilaterally Heart: regular rate and rhythm, no murmurs Abd: soft, non-tender, non-distended Ext: no edema Skin: warm/well-perfused Neuro: alert and oriented x3, no focal findings Psych: appropriate affect DS: Data Data Completed and Pending Completed studies during hospitalization [Text1]: Laboratory Results WBC 12.5 X10*3/uL (4.8-10.8) H 12/06/21 08:17 RBC 3.67 X10*6/uL (4.60-5.80) L 12/06/21 08:17 Hgb 10.7 g/dl (14.0-18.0) L 12/06/21 08:17 Hct 33.8 % (42.0-52.0) L 12/06/21 08:17 MCV 92.1 fL (80.0-98.0) 12/06/21 08:17 MCH 29.2 pg (27.0-33.0) 12/06/21 08:17 MCHC 31.7 g/dl (31.0-36.0) 12/06/21 08:17 RDW 12.8 % (11.0-16.0) 12/06/21 08:17 Plt Count 225 X10*3/uL (160-400) 12/06/21 08:17 MPV 9.3 fL (9.4-12.4) L 12/06/21 08:17 Immature Gran % (Auto) 0.6 % (0.0-0.4) H 12/06/21 08:17 Neut % (Auto) 77.0 % (45-73) H 12/06/21 08:17 Lymph % (Auto) 11.2 % (20-40) L 12/06/21 08:17 [place] % (Auto) 7.8 % (2-11) 12/06/21 08:17 Eos % (Auto) 2.7 % (0-4) 12/06/21 08:17 Baso % (Auto) 0.7 % (0-2) 12/06/21 08:17 Lymph # (Auto) 1.4 X10*3/uL (1.2-4.9) 12/06/21 08:17 [place] # (Auto) 1.0 X10*3/uL (0.1-1.2) 12/06/21 08:17 Eos # (Auto) 0.3 X10*3/uL (0.0-0.4) 12/06/21 08:17 Baso # (Auto) 0.1 X10*3/uL (0.0-0.2) 12/06/21 08:17 Abs Immat Gran (auto) 0.08 X10*3/uL (0.00-0.03) H 12/06/21 08:17 Absolute Neuts (auto) 9.6 x10*3/uL (2.0-8.3) H 12/06/21 08:17 Absolute Nucleated RBC 0.000 X10*3/uL (0.0-0.012) 12/06/21 08:17 Nucleated RBC % (auto) 0.0 /100WBC (0.0-0.2) 12/06/21 08:17 Sodium 138 mmol/L (135-145) 12/06/21 08:17 Potassium 5.2 mmol/L (3.3-5.1) H D 12/06/21 08:17 Chloride 104 mmol/L (96-108) 12/06/21 08:17 Carbon Dioxide 26 mmol/L (22-29) 12/06/21 08:17 Anion Gap 13 (12-20) 12/06/21 08:17 BUN 22 mg/dL (9-16) H 12/06/21 08:17 Creatinine 1.23 mg/dL (0.5-1.4) 12/06/21 08:17 Estim Creat Clear Calc 66.3 12/06/21 08:17 Estimated GFR 58 12/06/21 08:17 POC Glucose 206 mg/dL (60-115) H 12/07/21 10:48 Random Glucose 90 mg/dL (60-115) D 12/06/21 08:17 Estimat Average Glucose 143 mg/dL 12/07/21 09:39 Hemoglobin A1c % 6.6 % 12/07/21 09:39 Calcium 9.3 mg/dL (8.4-10.2) 12/06/21 08:17 Total Bilirubin 0.3 mg/dL (0.0-1.0) 12/06/21 08:17 Direct Bilirubin 0.2 mg/dL (0.0-0.5) 12/06/21 08:17 AST 33 U/L (5-37) D 12/06/21 08:17 ALT 18 U/L (0-40) 12/06/21 08:17 Alkaline Phosphatase 71 U/L (39-117) 12/06/21 08:17 Troponin I High Sens 15.8 ng/L (<3.5-35.0) D 12/06/21 08:17 Total Protein 7.0 g/dL (6.5-8.0) 12/06/21 08:17 Albumin 3.9 g/dL (3.5-5.0) 12/06/21 08:17 Lipase 5 U/L (8-78) L 12/06/21 08:17 Urine Color YELLOW 12/06/21 08:17 Urine Appearance CLOUDY 12/06/21 08:17 Urine pH 6.0 (5.0-8.0) 12/06/21 08:17 Ur Specific [place] 1.020 (1.005-1.025) 12/06/21 08:17 Urine Protein NEG MG/DL (NEG-TRACE) 12/06/21 08:17 Urine Glucose (UA) 100 MG/DL (NEG) H 12/06/21 08:17 Urine Ketones NEG MG/DL (NEG) 12/06/21 08:17 Urine Blood NEG (NEG) 12/06/21 08:17 Urine Nitrite NEG (NEG) 12/06/21 08:17 Ur Leukocyte Esterase NEG (NEG) 12/06/21 08:17 COVID-19 (SYED) Negative (Negative) 12/06/21 14:26 COVID-19 Clin Com See Note 12/06/21 14:26 Impressions Chest X-Ray 12/06/21 08:51 IMPRESSION: 1. No radiographic evidence of acute cardiopulmonary disease. 2. No radiographic evidence of any displaced fracture, subluxation or dislocation or joint effusion is seen. 3. Incidental note is made of extensive calcific atherosclerotic disease of the femoral popliteal arteries. Knee X-Ray 12/06/21 08:51 IMPRESSION: 1. No radiographic evidence of acute cardiopulmonary disease. 2. No radiographic evidence of any displaced fracture, subluxation or dislocation or joint effusion is seen. 3. Incidental note is made of extensive calcific atherosclerotic disease of the femoral popliteal arteries. Head CT 12/06/21 09:25 IMPRESSION: No acute intracranial pathology. No significant change since prior study dated 09/14/2018. Discharge Plan Discharge Patient Disposition: Home, Self-Care Discharge Diagnosis: syncope due to hypoglycemia Referrals: [facility] [place] [facility] [Provider Group] - 1 Week Alpa Kelly MD [Primary Care Provider] - 1 Week Discharge Medications: New Lantus U-100 Insulin 100 unit/mL solution 20 unit subcut .daily @ bedtime Qty: 10 0RF Rx Instructions: decreased from 40 units dextrose [Glucose Gel] 40 % gel 20 g PO Q15M PRN (Reason: hypoglycemia) Qty: 112.5 1RF Rx Instructions: until symptoms of low blood sugar are controlled Continued pravastatin 40 mg tablet 1 tab PO BEDTIME 0RF clopidogrel 75 mg tablet 1 tab PO DAILY 0RF aspirin 81 mg tablet,delayed release (DR/EC) 1 tab PO DAILY 0RF oxycodone-acetaminophen 5-325 mg tablet 1 tab PO Q12H PRN (Reason: pain) 0RF amitriptyline 25 mg tablet 3 tab PO BEDTIME 0RF amlodipine 10 mg tablet 1 tab PO DAILY 0RF gabapentin 300 mg capsule 600 mg PO BID 0RF albuterol sulfate 90 mcg/actuation HFA aerosol inhaler 2 puff inhalation Q6H PRN (Reason: wheezing) 0RF lisinopril 2.5 mg tablet 1 tab PO DAILY 0RF oxycodone [OxyContin] 20 mg tablet,oral only,ext.rel.12 hr 1 tab PO BID PRN (Reason: pain) 0RF Trelegy Ellipta 100-62.5-25 mcg blister with device 1 puff PO DAILY 0RF chlorthalidone 25 mg tablet 1 tab PO DAILY 0RF gabapentin 300 mg capsule 300 mg PO DAILY@1200 0RF Discontinued Stiolto Respimat 2.5-2.5 mcg/actuation mist 2 puff inhalation DAILY 0RF Lantus U-100 Insulin 100 unit/mL solution 40 unit subcut BEDTIME 0RF Discharge Orders: Discharge Order (Routine); Ordered 12/07/21 Ordered By: Mari Fabian Diet: diabetic diet Activity on Discharge: As tolerated Stand Alone Forms: Patient Portal Discharge page Care Plan Goals: avoid hypoglycemia avoid hyperglycemia Health Concerns: syncope due to hypoglycemia Plan of Treatment: decrease Lantus from 40 units to 20 units at bedtime monitor morning blood glucose; goal 80-140 mg/dL follow up with Primary Care in 1 week, Endocrinology referral suggested, continuous glucose meter suggested for symptoms of hypoglycemia, check blood glucose and take glucose gel if blood sugar is less than 70; then stop Lantus Assessment: see Discharge Summary Patient Instructions: Hypoglycemia in a Person with Diabetes (DC)
--- NOTE | 2021-12-07 12:14 | MHC.CM.PN ---
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 HE HAS NO VNA /NO DME SEEVICES IN THE HOME DISCHARGE PLAN HOME WITH NO SERVICES (NO ORDERED FROM PCP) PCP DR LUKE PATIENT TO FOLOW UP FOR POST HOPSITLA DISCHAGRE FOLLOW UP TRANSPORTATION FAMILY MEDICARE IMMM COMPLETED EDUCATED ABOUT THE IMPORTANCE OF HAVING HEALTH CARE PROXY
[2021-12-07] MEDS: Gabapentin 300 MG CAPSULE PO (12:36)
== END 2021-12-07 15:07 | disposition home or self-care (01) ==
LOC: HO.ED 13:27 → HO.EDOVER 14:57 → HO.S3 15:49
PROVIDERS: Admitting Provider Hospitalist; Emergency Provider Emergency Medicine; PCP Internal Medicine; Visit Provider Family Medicine
DX: R55 Syncope and collapse (principal); E11.649 Type 2 diabetes mellitus with hypoglycemia without coma; E11.51 Type 2 diabetes mellitus with diabetic peripheral angiopathy without gangrene; J44.9 Chronic obstructive pulmonary disease, unspecified; M25.561 Pain in right knee; I70.293 Other atherosclerosis of native arteries of extremities, bilateral legs; F17.210 Nicotine dependence, cigarettes, uncomplicated; Z20.822 Contact with and (suspected) exposure to COVID-19; Z79.4 Long term (current) use of insulin; Z79.82 Long term (current) use of aspirin; Z79.891 Long term (current) use of opiate analgesic; Z79.899 Other long term (current) drug therapy
CPT/HCPCS: 36415; 70450; 71045; 73560; 80048; 80076; 81003; 82947; 83036; 83690; 84484; 85025; 87635; 93005; 96361; 96374; 96376; 99218; 99285

== ENCOUNTER 2022-06-02 08:57 | Emergency (ER) | payer MEDICARE, SELFPAY ==
--- NOTE | ~2022-06-02 | US_ITS ---
EXAMINATION: US VENOUS ULTRASOUND WITH DOPPLER LOWER EXTREMITY, BILATERAL CLINICAL INFORMATION: Bilateral lower extremity pain and swelling COMPARISON: None TECHNIQUE: Ultrasound of the deep veins is performed from the hip to the calf with compression sonography and color and pulse Doppler assessment. Spectral analysis with color-flow imaging is performed. FINDINGS: RIGHT: There is normal venous compression and respiratory variation and augmented flow. The visualized common femoral vein, superficial femoral vein, profunda femoral vein, popliteal vein, and the trifurcation region shows no evidence of deep venous thrombosis. There is no significant popliteal fossa cyst. LEFT: There is normal venous compression and respiratory variation and augmented flow. The visualized common femoral vein, superficial femoral vein, profunda femoral vein, popliteal vein, and the trifurcation region shows no evidence of deep venous thrombosis. There is no significant popliteal fossa cyst. If the patient's symptoms persist, followup ultrasound in 5 days 7 days might be of value to exclude proximal propagation from a non-visualized calf vein. US/US venous duplex LE BI IMPRESSION: No DVT demonstrated in the bilateral lower extremities.
--- NOTE | ~2022-06-02 | CT_ITS ---
EXAMINATION: CT ANGIOGRAM OF THE CHEST WITH CONTRAST (CT PULMONARY ANGIOGRAM FOR PE) CLINICAL INFORMATION: Dyspnea. Evaluate for pulmonary embolism. COMPARISON: Lower extremity venous ultrasound from 06/02/2022 TECHNIQUE: Prior to contrast administration, noncontrast localization images were obtained. Subsequently, multidetector volumetric imaging was performed from the thoracic inlet to below the diaphragms following the administration of 65 mL Omnipaque 350 intravenous contrast. No contrast reaction reported. Sagittal, coronal, and MIP oblique sagittal reformatted images were obtained on the CT workstation, uploaded to PACS, and reviewed. This CT examination was performed using dose optimization techniques as appropriate, variously including the following: *Automated exposure control *Adjustment of mA and/or kV according to patient size (this includes techniques or standardized protocols for targeted exams where dose is matched to indication/reason for exam; i.e. extremities or head) *Use of iterative reconstruction technique DLP: Total exam dose-length product 321 mGy-cm FINDINGS: LUNGS AND PLEURA: Moderate centrilobular emphysema as well as paraseptal emphysema. Bronchial romero are diffusely thickened and there are scattered endobronchial secretions. Mild amount mucus along romero of the trachea and central bronchi. Several calcified and noncalcified micronodules are present in both lungs. A groundglass opacity in the lateral left lower lobe has an average diameter of 1.6 cm (image 49, series 5). If Fleischner Society guidelines are followed, then recommend chest CT follow-up in the next 6-12 months to confirm persistence or resolution. If persistent and stable, then chest CT may be needed every 2 years. No pleural effusion. QUALITY OF STUDY/CONTRAST BOLUS: Satisfactory. CARDIOVASCULAR: The pulmonary arteries are normal in size. No embolic filling defects are identified within the main, lobar or segmental vessels. No pericardial effusion. Three-vessel coronary artery atherosclerotic calcification is present. The heart size is normal. Mitral valve annulus is calcified. Thoracic aorta atherosclerosis without aneurysm. MEDIASTINUM/LOWER NECK: No mediastinal mass. Thyroid gland and esophagus are grossly unremarkable. LYMPHATICS: No pathologic sized axillary, hilar or mediastinal lymph nodes. UPPER ABDOMEN: No contrast reflux into the inferior vena cava. There is a hydropic appearance of the partially visualized gallbladder without gallbladder wall thickening or pericholecystic fluid. Adrenal glands are normal. Atherosclerotic calcification of the abdominal aorta and branch vessels. OSSEOUS STRUCTURES: Multilevel degenerative arthropathy of the thoracic spine. Diffuse idiopathic skeletal hyperostosis as manifest by presence of bulky flowing anterior ligament ossification of the thoracic spine. No suspicious bone lesions. Incidentally noted is symmetric appearance of bilateral gynecomastia. CT/CT angio chest PE protocol IMPRESSION: * No evidence of pulmonary embolism. * Moderate pulmonary emphysema. * Diffuse thickening of bronchial romero and endobronchial secretions, consistent with bronchitis. There is a nonspecific groundglass opacity of the lateral left lower lobe. It is uncertain whether this represents a mild focal pneumonitis. Recommend noncontrast chest CT follow-up in the next 6-12 months. 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 * Gallbladder has a hydropic appearance within the partially visualized upper abdomen.
[2022-06-02 09:44] VITALS: BP 144/56; PULSE 72; RESP 18; TEMP 36.6; O2SAT 100; BMI 23.7
[2022-06-02 09:54] LABS: MANUAL DIFF FLAG NO
[2022-06-02 09:58] LABS: Basophils Absolute Auto 0.2 X10*3/uL (0.0-0.2); Basophils Percent Auto 1.4 % (0-2); Eosinophils Absolute Auto 0.3 X10*3/uL (0.0-0.4); Eosinophils Percent Auto 2.7 % (0-4); Hematocrit 35.5 % (42.0-52.0); Hemoglobin 11.5 g/dl (14.0-18.0); Imm Gran Abs Auto 0.07 X10*3/uL (0.00-0.03); Imm Gran Pct Auto 0.7 % (0.0-0.4); Lymphocytes Absolute Auto 1.8 X10*3/uL (1.2-4.9); Lymphocytes Percent Auto 17.5 % (20-40); Mean Corpuscular HGB Conc 32.4 g/dl (31.0-36.0); Mean Corpuscular Hemoglobin 29.6 pg (27.0-33.0); Mean Corpuscular Volume 91.3 fL (80.0-98.0); Mean Platelet Volume 9.9 fL (9.4-12.4); Monocytes Absolute Auto 0.9 X10*3/uL (0.1-1.2); Monocytes Percent Auto 8.4 % (2-11); Neutrophils Absolute Auto 7.2 x10*3/uL (2.0-8.3); Neutrophils Percent Auto 69.3 % (45-73); Platelet Count 253 X10*3/uL (160-400); Red Blood Count 3.89 X10*6/uL (4.60-5.80); Red Cell Distribution Width 13.3 % (11.0-16.0); White Blood Count 10.4 X10*3/uL (4.8-10.8)
[2022-06-02 10:15] LABS: Anion Gap 17 (12-20); Blood Urea Nitrogen 26 mg/dL (9-16); Carbon Dioxide 21 mmol/L (22-29); Chloride 103 mmol/L (96-108); Estimated Glomerular Filt Rate 58; Glucose Random 292 mg/dL (60-115); Potassium 5.1 mmol/L (3.3-5.1); Sodium 136 mmol/L (135-145)
--- NOTE | 2022-06-02 10:28 | ECG_ITS ---
Test Reason : PULMONARY EMBOLISM Blood Pressure : / mmHG Vent. Rate : 065 BPM Atrial Rate : 065 BPM P-R Int : 182 ms QRS Dur : 096 ms QT Int : 400 ms P-R-T Axes : 083 058 077 degrees QTc Int : 416 ms Normal sinus rhythm Nonspecific ST abnormality Borderline ECG When compared with ECG of 06-DEC-2021 07:42, No significant change was found Referred By: Bertha Diaz Electronically Signed By:NOLA NAGEL MD
--- NOTE | 2022-06-02 10:33 | ED.GENADULT ---
HPI - General Adult General Chief complaint: Recheck/Abnormal Lab/Rx Stated complaint: Blood Clot on Lung Per PCP Time Seen by Provider: 06/02/22 10:11 Source: patient and family Mode of arrival: ambulatory Limitations: no limitations and other History of Present Illness HPI narrative: 71 yo male with PMH of DM, HLD, HTN, COPD, on daily aspirin reports that he went to his regular PCP checkup and that they did blood work on him (he states for a regular appointment). He was then called and told his labs were very abnormal and he needed to get imaging done immediately. He was sent to [facility] outpatient CT scan - he had a CT scan with contrast which was unusual for him (normally has routine dry CT scans). Called and told he has a PE in this lung and to go to the ER. Patient cannot tell me what labs were abnormal. Patient himself states he has no complaints MD complaint: called from [facility] outpatient radiology told he has a blood clot in his lung Onset (ago): day(s) (called this AM. ) Severity: mild Relieving factors: none Exacerbating factors: none Associated symptoms: denies other symptoms Treatments prior to arrival: none Related Data Home Medications Medication Instructions Recorded Confirmed albuterol sulfate 90 mcg/actuation 2 puff inhalation Q6H PRN wheezing 12/06/21 12/06/21 aerosol inhaler amitriptyline 25 mg tablet 3 tab PO BEDTIME 12/06/21 12/06/21 amlodipine 10 mg tablet 1 tab PO DAILY 12/06/21 12/06/21 aspirin 81 mg tablet,delayed 1 tab PO DAILY 12/06/21 12/06/21 release chlorthalidone 25 mg tablet 1 tab PO DAILY 12/06/21 12/06/21 clopidogrel 75 mg tablet 1 tab PO DAILY 12/06/21 12/06/21 fluticasone fur. 100 mcg-umeclid 1 puff PO DAILY 12/06/21 12/06/21 62.5 mcg-vilant 25 mcg inhalat.powder (Trelegy Ellipta) gabapentin 300 mg capsule 300 mg PO DAILY@1200 12/06/21 12/06/21 gabapentin 300 mg capsule 600 mg PO BID 12/06/21 12/06/21 lisinopril 2.5 mg tablet 1 tab PO DAILY 12/06/21 12/06/21 oxycodone 20 mg tablet,crush 1 tab PO BID PRN pain 12/06/21 12/06/21 resistant,extended release 12 hr (OxyContin) oxycodone-acetaminophen 5 mg-325 1 tab PO Q12H PRN pain 12/06/21 12/06/21 mg tablet pravastatin 40 mg tablet 1 tab PO BEDTIME 12/06/21 12/06/21 Previous Rx's Medication Instructions Recorded dextrose 40 % oral gel (Glucose 20 g PO Q15M PRN hypoglycemia 12/07/21 Gel) #112.5 grams insulin glargine 100 unit/mL 20 unit (0.2 mL) subcut .daily @ 12/07/21 subcutaneous solution (Lantus bedtime #10 mL U-100 Insulin) Allergies Allergy/AdvReac Type Severity Reaction Status Date / Time No Known Allergies Allergy Verified 12/06/21 06:41 Review of Systems Review of Systems: Constitutional : No Fever, No Chills ENT/Mouth : No sore throat, No Rhinorrhea, No Swallowing Difficulty Eyes: No Eye Pain, No Swelling, No Redness Cardiovascular : No Chest Pain, no SOB, No Orthopnea, positive Edema Respiratory : No Cough, No Sputum, No Wheezing, positive dyspnea Gastrointestinal : No Nausea, No Vomiting, No Diarrhea, No abdominal Pain, No Hematochezia, No Melena Genitourinary : No Dysuria, No Urinary Frequency, No Hematuria Musculoskeletal : No joint pain, No Myalgias Skin : No Skin Lesions, No rash Neuro : No Weakness, No Numbness, No Dizziness, No Headache Psych : No Anxiety/Panic, No Depression Heme/Lymph: No Bruising, No Lymphadenopathy Endocrine : No Polyuria, No Polydipsia All other systems reviewed and are negative FOR[facility] Past Medical History Attestation statement: The following information was validated with the patient. Medical History COPD (chronic obstructive pulmonary disease) COPD (chronic obstructive pulmonary disease) Diabetes HTN (hypertension) Hyperlipidemia Social History Social History Household Members: Spouse Housing: House Do you presently have visiting nurse or other home services: No Alcohol intake: never Patient Tobacco Use Status: Current everyday Tobacco user Tobacco use type: Cigarette Cigarette Packs Per Day: 0 Cigarettes Per Day: 5 Years Smoked: 56 Second Hand Smoke Exposure: No Advance Directives: Yes Advance Directives Information Provided: Yes Advance Directives on File: No service: Yes Current occupational status: retired Physical Exam ED Vital Signs: Vital Signs - 24 hr 06/02/22 09:44 06/02/22 10:47 06/02/22 12:50 Temperature 98 F Pulse Rate 72 66 68 Respiratory Rate 18 16 16 Blood Pressure 144/56 H 146/62 H 162/59 H Pulse Oximetry 100 99 97 Oxygen Delivery Method Room Air Room Air Room Air BMI result Body Mass Index 23.7 Appearance: Alert. Oriented X3. No acute distress. Eyes: Pupils equal, round and reactive to light. ENT: Pharynx normal. Neck: Normal inspection. Neck supple. CVS: Normal heart rate and rhythm. Pulses normal. Respiratory: No respiratory distress. Breath sounds slightly diminished Abdomen: Soft and non-tender. Skin: Skin warm and dry. Normal skin color. Normal skin turgor. venous stasis changes on bilateral LE Extremities: pitting edema bilateral 2+ lower extremity edema. Neuro: Oriented X 3. No motor deficit. No sensory deficit. Course Course Course Narrative: VQ scan showed high likelihood of PE - ddimer was elevated, DVT studies negative will obtain CTA to be sure given no prior VTE signed out to Dr. Connell pending workup and admit Medical Decision Making MDM Narrative Medical decision making narrative: 71 yo male with PMH of DM, HLD, HTN, COPD, on daily aspirin had a routine visit with his doctor per his reports states he had no complaints was then told his labs were abnormal and sent to the hospital for CT scan - called this AM and told he pulmonary embolus. He himself has no complaints and is slightly confused about the events because he wasn't given the information of the abnormal labs or the CT scan where his clot was. He will need labs, venous doppler studies and records from [facility] are requested. Lab Data Result diagrams: 06/02/22 09:49 06/02/22 09:49 Labs: Lab Results 06/02/22 06/02/22 06/02/22 Range/Units 09:49 09:49 09:49 WBC 10.4 (4.8-10.8) X10*3/uL RBC 3.89 L (4.60-5.80) X10*6/uL Hgb 11.5 L (14.0-18.0) g/dl Hct 35.5 L (42.0-52.0) % MCV 91.3 (80.0-98.0) fL MCH 29.6 (27.0-33.0) pg MCHC 32.4 (31.0-36.0) g/dl RDW 13.3 (11.0-16.0) % Plt Count 253 (160-400) X10*3/uL MPV 9.9 (9.4-12.4) fL Immature Gran % (Auto) 0.7 H (0.0-0.4) % Neut % (Auto) 69.3 (45-73) % Lymph % (Auto) 17.5 L (20-40) % [place] % (Auto) 8.4 (2-11) % Eos % (Auto) 2.7 (0-4) % Baso % (Auto) 1.4 (0-2) % Lymph # (Auto) 1.8 (1.2-4.9) X10*3/uL [place] # (Auto) 0.9 (0.1-1.2) X10*3/uL Eos # (Auto) 0.3 (0.0-0.4) X10*3/uL Baso # (Auto) 0.2 (0.0-0.2) X10*3/uL Abs Immat Gran (auto) 0.07 H (0.00-0.03) X10*3/uL Absolute Neuts (auto) 7.2 (2.0-8.3) x10*3/uL Absolute Nucleated RBC 0.000 (0.0-0.012) X10*3/uL Nucleated RBC % (auto) 0.0 (0.0-0.2) /100WBC PT (10.0-13.1) SEC INR (0.9-1.1) APTT (26.0-36.4) SEC Sodium 136 (135-145) mmol/L Potassium 5.1 (3.3-5.1) mmol/L Chloride 103 (96-108) mmol/L Carbon Dioxide 21 L (22-29) mmol/L Anion Gap 17 (12-20) BUN 26 H (9-16) mg/dL Creatinine 1.22 (0.5-1.4) mg/dL Estim Creat Clear Calc 60.0 Estimated GFR 58 Random Glucose 292 H D (60-115) mg/dL Calcium 9.0 (8.4-10.2) mg/dL Troponin I High Sens 7.2 D (<3.5-35.0) ng/L B-Natriuretic Peptide 28 (<100) pg/mL 06/02/22 Range/Units 11:51 WBC (4.8-10.8) X10*3/uL RBC (4.60-5.80) X10*6/uL Hgb (14.0-18.0) g/dl Hct (42.0-52.0) % MCV (80.0-98.0) fL MCH (27.0-33.0) pg MCHC (31.0-36.0) g/dl RDW (11.0-16.0) % Plt Count (160-400) X10*3/uL MPV (9.4-12.4) fL Immature Gran % (Auto) (0.0-0.4) % Neut % (Auto) (45-73) % Lymph % (Auto) (20-40) % [place] % (Auto) (2-11) % Eos % (Auto) (0-4) % Baso % (Auto) (0-2) % Lymph # (Auto) (1.2-4.9) X10*3/uL [place] # (Auto) (0.1-1.2) X10*3/uL Eos # (Auto) (0.0-0.4) X10*3/uL Baso # (Auto) (0.0-0.2) X10*3/uL Abs Immat Gran (auto) (0.00-0.03) X10*3/uL Absolute Neuts (auto) (2.0-8.3) x10*3/uL Absolute Nucleated RBC (0.0-0.012) X10*3/uL Nucleated RBC % (auto) (0.0-0.2) /100WBC PT 10.2 (10.0-13.1) SEC INR 0.9 (0.9-1.1) APTT 30.8 (26.0-36.4) SEC Sodium (135-145) mmol/L Potassium (3.3-5.1) mmol/L Chloride (96-108) mmol/L Carbon Dioxide (22-29) mmol/L Anion Gap (12-20) BUN (9-16) mg/dL Creatinine (0.5-1.4) mg/dL Estim Creat Clear Calc Estimated GFR Random Glucose (60-115) mg/dL Calcium (8.4-10.2) mg/dL Troponin I High Sens (<3.5-35.0) ng/L B-Natriuretic Peptide (<100) pg/mL ECG Data Attestation: I personally reviewed and interpreted this ECG as follows: Interpretation: Rate: 65 Rhythm: NSR [place]: normal Normal P waves. Normal [place]. Normal QRS complex. ST T wave : inverted aVL, nonspecific III and aVF, no THADDEUS qTC: normal prior studies: no acute ischemia The study has been interpreted contemporaneously by me. Discharge Plan Discharge Clinical Impression: Edema of lower extremity Patient Disposition: Still a Patient Prescriptions: No Action pravastatin 40 mg tablet 1 tab PO BEDTIME clopidogrel 75 mg tablet 1 tab PO DAILY aspirin 81 mg tablet,delayed release (DR/EC) 1 tab PO DAILY oxycodone-acetaminophen 5-325 mg tablet 1 tab PO Q12H PRN (Reason: pain) amitriptyline 25 mg tablet 3 tab PO BEDTIME amlodipine 10 mg tablet 1 tab PO DAILY gabapentin 300 mg capsule 600 mg PO BID albuterol sulfate 90 mcg/actuation HFA aerosol inhaler 2 puff inhalation Q6H PRN (Reason: wheezing) lisinopril 2.5 mg tablet 1 tab PO DAILY oxycodone [OxyContin] 20 mg tablet,oral only,ext.rel.12 hr 1 tab PO BID PRN (Reason: pain) Trelegy Ellipta 100-62.5-25 mcg blister with device 1 puff PO DAILY chlorthalidone 25 mg tablet 1 tab PO DAILY gabapentin 300 mg capsule 300 mg PO DAILY@1200 Lantus U-100 Insulin 100 unit/mL solution 20 unit subcut .daily @ bedtime Qty: 10 0RF Rx Instructions: decreased from 40 units dextrose [Glucose Gel] 40 % gel 20 g PO Q15M PRN (Reason: hypoglycemia) Qty: 112.5 1RF Rx Instructions: until symptoms of low blood sugar are controlled
[2022-06-02 10:47] VITALS: BP 146/62; PULSE 66; RESP 16; O2SAT 99
[2022-06-02 12:06] LABS: B Type Natriuretic Peptide 28 pg/mL (<100); Troponin-I High Sensitivity 7.2 ng/L (<3.5-35.0)
[2022-06-02 12:15] LABS: INTERNATIONAL NORM RATIO 0.9 (0.9-1.1); Prothrombin Time 10.2 SEC (10.0-13.1)
[2022-06-02 12:17] LABS: Partial Thromboplastin Time 30.8 SEC (26.0-36.4)
[2022-06-02 12:50] VITALS: BP 162/59; PULSE 68; RESP 16; O2SAT 97
[2022-06-02] MEDS: iohexoL 350 MG/ML 75 ML INFUS..BTL 65 ML IV (13:56)
[2022-06-02 15:31] VITALS: BP 183/74; PULSE 73; RESP 18; TEMP 36.6; O2SAT 98
== END 2022-06-02 16:02 | disposition home or self-care (01) ==
PROVIDERS: Emergency Medicine; Emergency Provider Emergency Medicine; PCP Physician Assistant
DX: R60.0 Localized edema (principal); R06.00 Dyspnea, unspecified; E11.9 Type 2 diabetes mellitus without complications; I10 Essential (primary) hypertension; E78.5 Hyperlipidemia, unspecified; F17.210 Nicotine dependence, cigarettes, uncomplicated; Z79.02 Long term (current) use of antithrombotics/antiplatelets; Z79.82 Long term (current) use of aspirin; Z79.899 Other long term (current) drug therapy; Z79.4 Long term (current) use of insulin
CPT/HCPCS: 36415; 71275; 80048; 83880; 84484; 85025; 85610; 85730; 93005; 93970; 99284; Q9967

== ENCOUNTER 2023-01-18 09:46 | Emergency (ER) | payer MEDICARE, SELFPAY ==
[2023-01-18 09:51] VITALS: BP 155/64; PULSE 63; RESP 18; O2SAT 100
[2023-01-18 09:58] VITALS: BP 150/60; BP 155/64; PULSE 80; PULSE 82; RESP 18; O2SAT 100; BMI 24.5
--- NOTE | 2023-01-18 10:01 | ECG_ITS ---
Test Reason : CHEST PAIN Blood Pressure : / mmHG Vent. Rate : 077 BPM Atrial Rate : 077 BPM P-R Int : 182 ms QRS Dur : 092 ms QT Int : 410 ms P-R-T Axes : 073 047 073 degrees QTc Int : 463 ms Sinus rhythm with frequent Premature ventricular complexes Otherwise normal ECG When compared with ECG of 02-JUN-2022 10:37, Premature ventricular complexes are now Present Referred By: Brock Rahman Electronically Signed By:COLE UP
--- NOTE | 2023-01-18 10:04 | PC.NURSE ---
orange juice, crackers, and sandwich provided to pt. pt remains a&ox4. reports taking his insulin last night and not eating this morning. plan to recheck poc after food and juice
[2023-01-18 10:27] LABS: MANUAL DIFF FLAG NO
[2023-01-18 10:42] LABS: Basophils Absolute Auto 0.1 X10*3/uL (0.0-0.2); Basophils Percent Auto 1.1 % (0-2); Eosinophils Absolute Auto 0.1 X10*3/uL (0.0-0.4); Eosinophils Percent Auto 0.7 % (0-4); Hematocrit 43.4 % (42.0-52.0); Hemoglobin 13.5 g/dl (14.0-18.0); Imm Gran Abs Auto 0.11 X10*3/uL (0.00-0.03); Imm Gran Pct Auto 0.8 % (0.0-0.4); Lymphocytes Absolute Auto 1.6 X10*3/uL (1.2-4.9); Lymphocytes Percent Auto 12.1 % (20-40); Mean Corpuscular HGB Conc 31.1 g/dl (31.0-36.0); Mean Corpuscular Volume 89.9 fL (80.0-98.0); Mean Platelet Volume 9.6 fL (9.4-12.4); Monocytes Absolute Auto 0.9 X10*3/uL (0.1-1.2); Monocytes Percent Auto 6.7 % (2-11); Neutrophils Absolute Auto 10.4 x10*3/uL (2.0-8.3); Neutrophils Percent Auto 78.6 % (45-73); Platelet Count 383 X10*3/uL (160-400); Red Blood Count 4.83 X10*6/uL (4.60-5.80); Red Cell Distribution Width 15.1 % (11.0-16.0); White Blood Count 13.2 X10*3/uL (4.8-10.8)
--- NOTE | 2023-01-18 10:46 | ED_ITS ---
HPI - General Adult General Chief complaint: General Medical Stated complaint: LOW BG (74) Time Seen by Provider: 01/18/23 09:52 Source: patient and EMS Mode of arrival: EMS Limitations: no limitations History of Present Illness HPI narrative: 72-year-old male with history of diabetes, COPD presents with altered mental status. EMS arrived, patient found to have low blood sugar in the 50s. He was given oral glucose improved significantly. He his behavior included altered mental status and combativeness. That has since resolved. On transport he complained of some shortness of breath and some left leg swelling and redness. Patient is on Lantus 40 units at night and 20 mg in the morning. He has been taking his medications appropriately. He did not eat this morning. He has had no fevers or chills. No nausea or vomiting. No diarrhea constipation. He did have an ultrasound of bilateral lower extremities early this week at [place]. He reports not being aware of the results but he also did not hear any negative results either. Denies any additional chest pain and his shortness of breath is chronic in nature. He takes DuoNebs at home. Patient is currently not on home oxygen. Related Data Home Medications Medication Instructions Recorded Confirmed albuterol sulfate 90 mcg/actuation 2 puff inhalation Q6H PRN wheezing 12/06/21 12/06/21 aerosol inhaler amitriptyline 25 mg tablet 3 tab PO BEDTIME 12/06/21 12/06/21 amlodipine 10 mg tablet 1 tab PO DAILY 12/06/21 12/06/21 aspirin 81 mg tablet,delayed 1 tab PO DAILY 12/06/21 12/06/21 release chlorthalidone 25 mg tablet 1 tab PO DAILY 12/06/21 12/06/21 clopidogrel 75 mg tablet 1 tab PO DAILY 12/06/21 12/06/21 fluticasone fur. 100 mcg-umeclid 1 puff PO DAILY 12/06/21 12/06/21 62.5 mcg-vilant 25 mcg inhalat.powder (Trelegy Ellipta) gabapentin 300 mg capsule 300 mg PO DAILY@1200 12/06/21 12/06/21 gabapentin 300 mg capsule 600 mg PO BID 12/06/21 12/06/21 lisinopril 2.5 mg tablet 1 tab PO DAILY 12/06/21 12/06/21 oxycodone 20 mg tablet,crush 1 tab PO BID PRN pain 12/06/21 12/06/21 resistant,extended release 12 hr (OxyContin) oxycodone-acetaminophen 5 mg-325 1 tab PO Q12H PRN pain 12/06/21 12/06/21 mg tablet pravastatin 40 mg tablet 1 tab PO BEDTIME 12/06/21 12/06/21 Previous Rx's Medication Instructions Recorded dextrose 40 % oral gel (Glucose 20 g PO Q15M PRN hypoglycemia 12/07/21 Gel) #112.5 grams insulin glargine 100 unit/mL 20 unit (0.2 mL) subcut .daily @ 12/07/21 subcutaneous solution (Lantus bedtime #10 mL U-100 Insulin) Allergies Allergy/AdvReac Type Severity Reaction Status Date / Time No Known Allergies Allergy Verified 12/06/21 06:41 Review of Systems Review of Systems: CONSTITUTIONAL: Denies weight loss, fever and chills. HEENT: Denies changes in vision and hearing. RESPIRATORY: + SOB and cough. CV: Denies palpitations no CP. GI: Denies abdominal pain, nausea, vomiting and diarrhea. : Denies dysuria and urinary frequency. MSK: Denies myalgia and joint pain. SKIN: Denies rash and pruritus. NEUROLOGICAL: Denies headache and syncope. PSYCHIATRIC: Denies recent changes in mood. Denies anxiety and depression. All other ROS are negative unless in HPI PMFSH Past Medical History Medical History COPD (chronic obstructive pulmonary disease) COPD (chronic obstructive pulmonary disease) Diabetes HTN (hypertension) Hyperlipidemia Social History Social History Household Members: Spouse Housing: House Do you presently have visiting nurse or other home services: No Alcohol intake: never Patient Tobacco Use Status: Current everyday Tobacco user Tobacco use type: Cigarette Cigarette Packs Per Day: 0 Cigarettes Per Day: 5 Years Smoked: 56 Second Hand Smoke Exposure: No Advance Directives: No Advance Directives Information Provided: Yes service: Yes Current occupational status: retired Physical Exam ED Vital Signs: Vital Signs - 24 hr 01/18/23 09:51 01/18/23 09:58 01/18/23 12:07 Temperature 97.6 F Pulse Rate 63 82 60 Respiratory Rate 18 18 20 Blood Pressure 155/64 H 155/64 H 134/55 L Pulse Oximetry 100 100 95 Oxygen Delivery Method Non-Rebreather Mask Room Air Room Air Oxygen Flow Rate 7 01/18/23 13:39 Temperature Pulse Rate 74 Respiratory Rate 17 Blood Pressure Pulse Oximetry Oxygen Delivery Method Oxygen Flow Rate BMI result Body Mass Index 24.5 GEN: Well developed, no acute distress, alert, oriented HEENT: Normocephalic, atraumatic, normal external ears, nose appears normal, no oropharyngeal edema or exudates Eyes: Normal to appearance Neck: Supple, no lymphadenopathy Respiratory: Talks in complete sentences, no respiratory distress, clear to auscultation bilaterally Cardiovascular: Regular rate and rhythm, no murmurs rubs or gallops Abdomen: Soft, nontender, nondistended, no guarding, no rebound Back: No CVA tenderness Extremities: No clubbing cyanosis 3+ edema Neurologic: No focal neurologic deficits, cranial nerves 2-12 intact, strength is 5/5 bilaterally Skin: No rash Course Course Course Narrative: 72-year-old male presents with hypoglycemia and altered mental status. He has been a appropriate throughout his emergency department course. His blood sugars have remained appropriately elevated. He did not take his morning insulin which is somewhat concerning. We did discuss the significant drop in his insulin tonight probably 20 units would be more appropriate and then to see how he does in the morning. We discussed would rather run a little bit high in the 300s and then slowly but surely dropped his blood sugars lower with increasing doses of Lantus. Regarding lower extremity edema, this moves most likely stasis dermatitis. We were unable to get the ultrasound reports however, I doubt seriously that he has a DVT at this time given the symmetric nature of his edema. Radial chest pain or shortness of breath, patient is to return. If his swelling or redness gets worse he will also return for re-evaluation. was present during this conversation Medications Administered Discontinued Medications Generic Name Dose Route Start Last Admin Trade Name Freq PRN Reason Stop Dose Admin Albuterol Sulfate 2 puff 01/18/23 13:37 01/18/23 13:38 Albuterol Sulfate 90 Mcg 8 Gm Inhaler INHALE 01/18/23 13:38 2 puff ONCE ONE Administration Medical Decision Making Medical Decision Making [facility] Narrative: 72-year-old male presents with altered mental status improved after adm inistration of glucose with a low blood sugar. Differential diagnosis could include encephalopathy, hypoglycemia, electrolyte abnormality, UTI. The fact that patient improved with oral glucose administration is highly suggestive of hypoglycemia as etiology of his symptoms. Patient was given food immediately upon my evaluation. He is nonfocal neurologically. He is mentating normally. He does complain of some shortness of breath but currently feels at his baseline after 1 DuoNeb. His lungs are clear to auscultation bilaterally although he did not have great air movement throughout. Will continue to monitor the patient for his blood sugar monitoring. I will attempt to get an ultrasound report of his legs that was done earlier this week at [facility]. Patient will likely be able to be discharged home. Patient does report recently had changes to his Lantus. I will probably recommend reducing his insulin to 35 units at night and 15 units in the morning. Differential Diagnosis Differential Diagnoses: The differential diagnosis associated with the presentation includes (See above) Hypoglycemia, lower extremity edema, COPD Admission/Observation Consideration of admission/observation: Escalation of care including admission/observation considered Lab Data MDM Lab Attestation statement: I reviewed the patient's lab results. 01/18/23 10:24 01/18/23 10:24 Labs: Lab Results 01/18/23 01/18/23 01/18/23 Range/Units 09:55 10:24 10:24 WBC 13.2 H (4.8-10.8) X10*3/uL RBC 4.83 D (4.60-5.80) X10*6/uL Hgb 13.5 L (14.0-18.0) g/dl Hct 43.4 D (42.0-52.0) % MCV 89.9 (80.0-98.0) fL MCH 28.0 (27.0-33.0) pg MCHC 31.1 (31.0-36.0) g/dl RDW 15.1 (11.0-16.0) % Plt Count 383 D (160-400) X10*3/uL MPV 9.6 (9.4-12.4) fL Immature Gran % (Auto) 0.8 H (0.0-0.4) % Neut % (Auto) 78.6 H (45-73) % Lymph % (Auto) 12.1 L (20-40) % [place] % (Auto) 6.7 (2-11) % Eos % (Auto) 0.7 (0-4) % Baso % (Auto) 1.1 (0-2) % Lymph # (Auto) 1.6 (1.2-4.9) X10*3/uL [place] # (Auto) 0.9 (0.1-1.2) X10*3/uL Eos # (Auto) 0.1 (0.0-0.4) X10*3/uL Baso # (Auto) 0.1 (0.0-0.2) X10*3/uL Abs Immat Gran (auto) 0.11 H (0.00-0.03) X10*3/uL Absolute Neuts (auto) 10.4 H (2.0-8.3) x10*3/uL Absolute Nucleated RBC 0.000 (0.0-0.012) X10*3/uL Nucleated RBC % (auto) 0.0 (0.0-0.2) /100WBC Sodium 142 (135-145) mmol/L Potassium 4.0 D (3.3-5.1) mmol/L Chloride 103 (96-108) mmol/L Carbon Dioxide 29 (22-29) mmol/L Anion Gap 14 (12-20) BUN 16 (9-16) mg/dL Creatinine 0.89 (0.5-1.4) mg/dL Estim Creat Clear Calc 66.7 Estimated GFR > 60 POC Glucose 31 L* (60-115) mg/dL Random Glucose 35 L* (60-115) mg/dL Estimat Average Glucose mg/dL Hemoglobin A1c % % Calcium 9.4 (8.4-10.2) mg/dL Urine Color Urine Appearance Urine pH (5.0-9.0) Ur Specific [place] (1.005-1.025) Urine Protein (Neg-Trace) mg/dL Urine Glucose (UA) (Negative) mg/dL Urine Ketones (Negative) mg/dL Urine Blood (Negative) Urine Nitrite (Negative) Ur Leukocyte Esterase (Negative) Urine RBC (0-2) /HPF Urine WBC (0-5) /HPF Ur Squamous Epith Cells (0-2) /HPF Urine Bacteria (None Seen) Hyaline Casts (0-2) /LPF 01/18/23 01/18/23 01/18/23 Range/Units 10:24 10:50 10:52 WBC (4.8-10.8) X10*3/uL RBC (4.60-5.80) X10*6/uL Hgb (14.0-18.0) g/dl Hct (42.0-52.0) % MCV (80.0-98.0) fL MCH (27.0-33.0) pg MCHC (31.0-36.0) g/dl RDW (11.0-16.0) % Plt Count (160-400) X10*3/uL MPV (9.4-12.4) fL Immature Gran % (Auto) (0.0-0.4) % Neut % (Auto) (45-73) % Lymph % (Auto) (20-40) % [place] % (Auto) (2-11) % Eos % (Auto) (0-4) % Baso % (Auto) (0-2) % Lymph # (Auto) (1.2-4.9) X10*3/uL [place] # (Auto) (0.1-1.2) X10*3/uL Eos # (Auto) (0.0-0.4) X10*3/uL Baso # (Auto) (0.0-0.2) X10*3/uL Abs Immat Gran (auto) (0.00-0.03) X10*3/uL Absolute Neuts (auto) (2.0-8.3) x10*3/uL Absolute Nucleated RBC (0.0-0.012) X10*3/uL Nucleated RBC % (auto) (0.0-0.2) /100WBC Sodium (135-145) mmol/L Potassium (3.3-5.1) mmol/L Chloride (96-108) mmol/L Carbon Dioxide (22-29) mmol/L Anion Gap (12-20) BUN (9-16) mg/dL Creatinine (0.5-1.4) mg/dL Estim Creat Clear Calc Estimated GFR POC Glucose 103 (60-115) mg/dL Random Glucose (60-115) mg/dL Estimat Average Glucose 315 mg/dL Hemoglobin A1c % 12.6 % Calcium (8.4-10.2) mg/dL Urine Color Yellow Urine Appearance Clear Urine pH 7.0 (5.0-9.0) Ur Specific [place] 1.020 (1.005-1.025) Urine Protein 100 (2+) H (Neg-Trace) mg/dL Urine Glucose (UA) >=1000 H (Negative) mg/dL Urine Ketones Negative (Negative) mg/dL Urine Blood Negative (Negative) Urine Nitrite Negative (Negative) Ur Leukocyte Esterase Negative (Negative) Urine RBC 0-2 (0-2) /HPF Urine WBC 0-5 (0-5) /HPF Ur Squamous Epith Cells 0-2 (0-2) /HPF Urine Bacteria None Seen (None Seen) Hyaline Casts 0-2 (0-2) /LPF 01/18/23 Range/Units 12:05 WBC (4.8-10.8) X10*3/uL RBC (4.60-5.80) X10*6/uL Hgb (14.0-18.0) g/dl Hct (42.0-52.0) % MCV (80.0-98.0) fL MCH (27.0-33.0) pg MCHC (31.0-36.0) g/dl RDW (11.0-16.0) % Plt Count (160-400) X10*3/uL MPV (9.4-12.4) fL Immature Gran % (Auto) (0.0-0.4) % Neut % (Auto) (45-73) % Lymph % (Auto) (20-40) % [place] % (Auto) (2-11) % Eos % (Auto) (0-4) % Baso % (Auto) (0-2) % Lymph # (Auto) (1.2-4.9) X10*3/uL [place] # (Auto) (0.1-1.2) X10*3/uL Eos # (Auto) (0.0-0.4) X10*3/uL Baso # (Auto) (0.0-0.2) X10*3/uL Abs Immat Gran (auto) (0.00-0.03) X10*3/uL Absolute Neuts (auto) (2.0-8.3) x10*3/uL Absolute Nucleated RBC (0.0-0.012) X10*3/uL Nucleated RBC % (auto) (0.0-0.2) /100WBC Sodium (135-145) mmol/L Potassium (3.3-5.1) mmol/L Chloride (96-108) mmol/L Carbon Dioxide (22-29) mmol/L Anion Gap (12-20) BUN (9-16) mg/dL Creatinine (0.5-1.4) mg/dL Estim Creat Clear Calc Estimated GFR POC Glucose 162 H (60-115) mg/dL Random Glucose (60-115) mg/dL Estimat Average Glucose mg/dL Hemoglobin A1c % % Calcium (8.4-10.2) mg/dL Urine Color Urine Appearance Urine pH (5.0-9.0) Ur Specific [place] (1.005-1.025) Urine Protein (Neg-Trace) mg/dL Urine Glucose (UA) (Negative) mg/dL Urine Ketones (Negative) mg/dL Urine Blood (Negative) Urine Nitrite (Negative) Ur Leukocyte Esterase (Negative) Urine RBC (0-2) /HPF Urine WBC (0-5) /HPF Ur Squamous Epith Cells (0-2) /HPF Urine Bacteria (None Seen) Hyaline Casts (0-2) /LPF Independent Interpretation I performed an independent interpretation of an: EKG (Normal sinus rhythm heart rate 77, frequent PVCs with suggestive of intermittent bigeminy. No acute ST elevations depressions, his QTC 463 milliseconds) Independent Historian Clinical information obtained from an independent historian. History obtained from or confirmed by: EMS Prescription Management I considered prescription management with: Antibiotic Chronic Conditions Patient?s care impacted by: Diabetes Discharge Plan Discharge Clinical Impression: Hypoglycemia, COPD (chronic obstructive pulmonary disease), Bilateral edema of lower extremity, Stasis dermatitis Patient Disposition: Home, Self-Care Instructions: Hypoglycemia in a Person with Diabetes (ED), COPD (Chronic Obstructive Pulmonary Disease) (ED), Leg Edema (ED) Additional Instructions: Reduce your Lantus insulin to 35 units at night and 15 units in the morning and follow up with her primary care provider. Prescriptions: No Action pravastatin 40 mg tablet 1 tab PO BEDTIME clopidogrel 75 mg tablet 1 tab PO DAILY aspirin 81 mg tablet,delayed release (DR/EC) 1 tab PO DAILY oxycodone-acetaminophen 5-325 mg tablet 1 tab PO Q12H PRN (Reason: pain) amitriptyline 25 mg tablet 3 tab PO BEDTIME amlodipine 10 mg tablet 1 tab PO DAILY gabapentin 300 mg capsule 600 mg PO BID albuterol sulfate 90 mcg/actuation HFA aerosol inhaler 2 puff inhalation Q6H PRN (Reason: wheezing) lisinopril 2.5 mg tablet 1 tab PO DAILY oxycodone [OxyContin] 20 mg tablet,oral only,ext.rel.12 hr 1 tab PO BID PRN (Reason: pain) Trelegy Ellipta 100-62.5-25 mcg blister with device 1 puff PO DAILY chlorthalidone 25 mg tablet 1 tab PO DAILY gabapentin 300 mg capsule 300 mg PO DAILY@1200 Lantus U-100 Insulin 100 unit/mL solution 20 unit subcut .daily @ bedtime Qty: 10 0RF Rx Instructions: decreased from 40 units dextrose [Glucose Gel] 40 % gel 20 g PO Q15M PRN (Reason: hypoglycemia) Qty: 112.5 1RF Rx Instructions: until symptoms of low blood sugar are controlled
[2023-01-18 10:58] LABS: Glucose, Whole Blood 31 mg/dL (60-115)
[2023-01-18 10:58] LABS: Glucose, Whole Blood 103 mg/dL (60-115)
[2023-01-18 11:01] LABS: Appearance Urine Clear; Color Urine Yellow; Glucose Urine UA >=1000 mg/dL (Negative); Leukocyte Esterase Urine Negative (Negative); Nitrite Urine Negative (Negative); UMIC TRIGGER UACC YES; Urine Blood Negative (Negative); Urine Ketones Negative (Negative); Urine Protein 100 (2+) mg/dL (Neg-Trace)
[2023-01-18 11:08] LABS: Bacteria Urine None Seen (None Seen); Hyaline Casts Urine 0-2 /LPF (0-2); RBC Urine 0-2 /HPF (0-2); Squamous Epithelial Cell Urine 0-2 /HPF (0-2); WBC Urine 0-5 /HPF (0-5)
[2023-01-18 11:25] LABS: Estimated Average Glucose 315 mg/dL; Hemoglobin A1c % 12.6 %
[2023-01-18 11:35] LABS: Anion Gap 14 (12-20); Blood Urea Nitrogen 16 mg/dL (9-16); Calcium 9.4 mg/dL (8.4-10.2); Carbon Dioxide 29 mmol/L (22-29); Chloride 103 mmol/L (96-108); Creatinine Clr Calc Pharmacy 66.7; Estimated Glomerular Filt Rate > 60; Glucose Random 35 mg/dL (60-115); Sodium 142 mmol/L (135-145)
[2023-01-18 12:07] VITALS: BP 134/55; PULSE 60; RESP 20; TEMP 36.4; O2SAT 95
--- NOTE | 2023-01-18 12:11 | PC.NURSE ---
repeat poc 162
[2023-01-18 12:12] LABS: Glucose, Whole Blood 162 mg/dL (60-115)
[2023-01-18] MEDS: Albuterol Sulfate 90 MCG 8 GM INHALER 2 PUFF INHALE (13:38)
[2023-01-18 13:39] VITALS: PULSE 74; RESP 17; O2SAT 98
== END 2023-01-18 15:17 | disposition home or self-care (01) ==
PROVIDERS: Emergency Provider Emergency Medicine
DX: E11.649 Type 2 diabetes mellitus with hypoglycemia without coma (principal); J44.9 Chronic obstructive pulmonary disease, unspecified; R60.0 Localized edema; I87.2 Venous insufficiency (chronic) (peripheral); I10 Essential (primary) hypertension; E78.5 Hyperlipidemia, unspecified; Z79.82 Long term (current) use of aspirin; Z79.02 Long term (current) use of antithrombotics/antiplatelets; Z79.899 Other long term (current) drug therapy; Z79.4 Long term (current) use of insulin
CPT/HCPCS: 36415; 80048; 81001; 81003; 82947; 83036; 85025; 93005; 94640; 99284